=== PATIENT | male | born 1990 | race Caucasian/White ===

== ENCOUNTER 2020-06-02 06:35 | Outpatient (CLI) | payer OTHER, SELFPAY ==
--- NOTE | ~2020-06-02 | MR_ITS ---
EXAMINATION: MR knee RT wo con DATE: 06/02/2020 09:20 INDICATION: Internal derangement of the right knee presenting with right knee pain and giving out TECHNIQUE: Magnetic resonance imaging (MRI) of the right knee was performed without intravenous contr ast. Sequences included coronal PD-weighted FSE, coronal PD-weighted FS FSE, sagittal T2-weighted FS E, sagittal PD-weighted FS FSE and axial PD weighted fat saturated FSE. COMPARISON: None. FINDINGS: Evaluation mildly limited by small amount of motion artifact or blurring to some degree on all sequen tiffani. Medial compartment: Medial meniscus is normal. Articular cartilage is normal. Lateral compartment: Lateral meniscus is normal. Articular cartilage is normal. Patellofemoral compartment: Deep chondral fissuring without degenerative subchondral changes at the patellar apical ridge. Remain ing cartilage in the patellofemoral compartment is normal. Ligaments and tendons: Anterior and posterior cruciate ligaments are normal. The medial collateral ligament and fibular timo ateral ligament complex are normal. The extensor mechanism is normal. The visualized medial and later al hamstring tendons as well as the iliotibial band are normal. Fluid: Physiologic amount of fluid in the joint space. No loose osteochondral bodies identified. Osseous/other: Normal marrow signal. No fracture or abnormal marrow replacing process. Mild edema in the infrapatell ar fat pad along the inferolateral margin of the patella which is similar but significantly less matty re than at the contralateral right knee, also consistent with fat pad impingement syndrome. IMPRESSION: 1. 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 2. Mild focal edema in the infrapatellar fat pad along the inferolateral margin of the patella simila r but less severe than at the contralateral right knee and which could be seen with fat pad impingeme nt syndrome. Reviewed, dictated and finalized at location B. T FOLDING MACHINE OPERATOR IMPRESSION: 1. 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 2. Mild focal edema in the infrapatellar fat pad along the inferolateral margin of the patella similar but less severe than at the contralateral right knee an d which could be seen with fat pad impingement syndrome.
--- NOTE | ~2020-06-02 | MR_ITS ---
EXAMINATION: MR knee LT wo con DATE: 06/02/2020 09:20 INDICATION: Internal derangement of the left knee TECHNIQUE: Magnetic resonance imaging (MRI) of the left knee was performed without intravenous contra st. Sequences included coronal PD-weighted FSE, coronal PD-weighted FS FSE, sagittal T2-weighted FSE , sagittal PD-weighted FS FSE and axial PD weighted fat saturated FSE. COMPARISON: None. FINDINGS: Evaluation mildly limited by some degree of motion artifact on all of the sagittal and coronal sequen tiffani including a repeated sagittal sequence. Medial compartment: Medial meniscus is normal. Articular cartilage is normal. Lateral compartment: Lateral meniscus is normal. Articular cartilage is normal. Patellofemoral compartment: Partial-thickness chondral fissuring without degenerative subchondral changes at the medial patellar facet. Remaining cartilage in the patellofemoral compartment is normal. Ligaments and tendons: Anterior and posterior cruciate ligaments are normal. The medial collateral ligament and fibular timo ateral ligament complex are normal. The extensor mechanism is normal. The visualized medial and later al hamstring tendons as well as the iliotibial band are normal. Fluid: Physiologic amount of fluid in the joint space. No loose osteochondral bodies identified. Osseous/other: Normal marrow signal. No fracture or abnormal marrow replacing process. There is prominent edema in t he infrapatellar fat pad along the inferolateral margin of the patella which can be seen with fat pad impingement syndrome. IMPRESSION: 1. Small region of moderate grade chondromalacia at the medial patellar facet. 2. Prominent focal edema in the infrapatellar fat along the inferolateral margin of the patella which can be seen with fat pad impingement syndrome. Reviewed, dictated and finalized at location B. ING AGENT IMPRESSION: 1. Small region of moderate grade chondromalacia at the medial patellar facet. 2. Prominent focal edema in the infrapatellar fat along the inferolateral vitaly n of the patella which can be seen with fat pad impingement syndrome.
== END 2020-06-02 06:36 | disposition home or self-care (01) ==
PROVIDERS: Family Provider Internal Medicine; PCP Family Medicine; Visit Provider Anesthesiology
DX: M23.91 Unspecified internal derangement of right knee (principal); M23.92 Unspecified internal derangement of left knee; M22.40 Chondromalacia patellae, unspecified knee; R60.0 Localized edema
CPT/HCPCS: 73721

== ENCOUNTER 2020-06-02 06:56 | Outpatient (CLI) | payer OTHER, SELFPAY ==
--- NOTE | ~2020-06-02 | XR_ITS ---
EXAMINATION: XR thoracic spine 3V EXAM DATE: 06/02/2020 07:22 INDICATION: Thoracic back pain, left shoulder pain, states fall. TECHNIQUE: Frontal and lateral projections of the thoracic spine as well as lateral swimmers projecti on of the upper thoracic spine for interpretation. There is no prior study for comparison. FINDINGS: Mild mid and lower thoracic disc disease. No endplate erosive change. There are no acute fractures identified. The vertebral bodies are aligned in the AP dimension. Paraspinal soft tissue i s unremarkable. IMPRESSION: 1. 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 Reviewed, dictated and finalized at location A. NESS SYSTEMS CONSULTANT
--- NOTE | ~2020-06-02 | XR_ITS ---
EXAMINATION: XR shoulder LT min 2V DATE: 06/02/2020 07:22 INDICATION: Left shoulder pain. TECHNIQUE: 4 views of left shoulder were obtained. COMPARISON: None. FINDINGS: Bone alignment is normal. No fracture. Glenohumeral joint is normal. There is mild acromioc lavicular joint osteoarthritis. IMPRESSION: 1. Mild left acromioclavicular joint osteoarthritis. Reviewed, dictated and finalized at location A. PULLER
== END 2020-06-02 06:57 | disposition home or self-care (01) ==
PROVIDERS: Family Provider Internal Medicine; PCP Family Medicine; Visit Provider Family Medicine
DX: M51.34 Other intervertebral disc degeneration, thoracic region (principal); M19.012 Primary osteoarthritis, left shoulder
CPT/HCPCS: 72072; 73030

== ENCOUNTER 2024-11-06 11:21 | Outpatient (CLI) | payer OTHER, SELFPAY ==
--- OUTSIDE RECORDS SUMMARY | 2024-11-06 11:25 | XMS_ITS | Clinical Summary ---
Author Organization [facility] Katiana andrews [facility] Address [address] [facility] [place] [address] Care Team Providers Care Dividend Deposit Voucher Clerk Name Role Phone Unavailable Primary Care Provider Unavailabl e Allergies Active Allergy Reactions Criticality Noted Date Comments Propofol Shortness of Breath/Wheezing High 025 Affects asthma Medications albuterol sulfate HFA 90 mcg/actuation aerosol inhaler USE 2 INHALATIONS EVERY 4 TO 6 HOURS NEEDED FOR WHEEZING AND SHORTNESS OF BREATH Active amLODIPine (NORVASC) 10 mg tablet Take 10 mg by mouth daily. Active atorvastatin (LIPITOR) 40 mg tablet Take 40 mg by mouth daily. Active cholecalciferol 1,250 mcg (50,000 unit) Capsule TAKE 1 CAPSULE BY MOUTH ONE TIME PER WEEK FOR 90 DAYS Active Active Problems No known active problems Encounters Date Type Department Care Team Description 11/06/2024 10:30 AM CDT Office Visit [facility] Oncology and Hematology - [place] [address] [place] [address] Cleveland Reyes MD Polycythemia, secondary (Primary Dx) from Last 3 Months Family History Medical History Relation Name Comments Diabetes Father No Known Problems Mother No Known Problems Sister 1 No Known Problems Sister 2 Relation Name Status Comments Father Alive Mother Alive Sister 1 Alive Sister 2 Alive Social History Tobacco Use Types Packs/Day Years Used Date Smoking Tobacco: Never Smokeless Tobacco: Never Alcohol Use Standard Drinks/Week Comments Yes 0 (1 standard drink = 0.6 oz pur e alcohol) occasional Sex and Gender Information Value Date Recorded Sex Assigned at Not on file 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 Gender Identity Not on file Sexual Orientation Not on file Last Filed Vital Signs Vital Sign Reading Time Taken Comments Blood Pressure 134/83 11/06/2024 10:29 AM CDT Pulse 95 11/06/2024 10:29 AM CDT Temperature 36.9 C (98.4 F) 11/06/2024 10:29 AM CDT Respiratory Rate 16 11/06/2024 10:2 9 AM CDT Oxygen Saturation 95% 11/06/2024 10: 29 AM CDT Inhaled Oxygen Concentration - - Weight 84.7 kg (186 lb 12.8 oz) 025 10:29 AM CDT Height 177.8 cm (5' 10) 11/06/2024 10: 29 AM CDT Body Mass Index 26.8 11/06/2024 10:29 AM CDT Plan of Treatment Upcoming Encounters Date Type Department Care Team (Late st Contact Info) Description 11/20/2024 4:30 PM CDT Telephone Check Up [facility] - [place] [address] [facility] [address] [place] [id number] Cleveland Reyes MD [address] [facility] [address] [place] [address] Health Maintenance Due Date Last Done Comments Pre-Diabetes and Diabetes Screening 1988 HEPATITIS B VACCINES (1 of 3 - 19+ 3-dose series) 01/30/2007 Preventative Visit- Commercial 05/07/2024 09/06/2022 INFLUENZA VACCINE (#1) 2024 DTAP/TDAP/TD VACCINES (2 - T d or Tdap) 12/02/2031 12/01/2021 HPV VACCINES Aged Out No longer eligi ble based on patient's age to complete this topic Insurance [facility] [id number] Member Subscriber Plan / Payer (Ef fective 2024-Present) Name:Alli Benoit Relation to Subscriber:Self Name:Alli Benoit Payer ID:[id number] (NAIC) Type:[facility] Address: [facility] [id number] [place] [id number]
--- OUTSIDE RECORDS SUMMARY | 2024-11-06 11:25 | XMS_ITS | Encounter Summary ---
Author Organization [facility] [employer] [facility] Address [address] [place] [address] Care Team Providers Care Ditcher Operator Name Role Phone Unavailable Primary Care Provider Unavailabl e Reason for Referral * Laboratory Services (Routine) - Open Specialty Diagnoses / Procedures Referred By Harleen t Referred To Contact Diagnoses Polycythemia, secondary Procedures JAK2 MUTATION Cleveland Reyes MD [address] [facility] [employer] [address] [address] Phone: tel: fax: Referral ID Status Reason Start Date Expiration Date Visits Re quested Visits Authorized [id number] Open 11/06/2024 12/07/2025 1 1 Encounter Details Date Type Department Care Team (Late st Contact Info) Description 11/06/2024 10:30 AM CDT Office Visit [facility] Oncology and Hematology - [place] [address] [place] [address] [facility] [address] [place] [address] Cleveland Reyes MD [address] [place], [place] [address] [address] [place] [phone] Polycythemia, secondary (Primary Dx) Social History Tobacco Use Types Packs/Day Years Used Date Smoking Tobacco: Never Smokeless Tobacco: Never Alcohol Use Standard Drinks/Week Comments Yes 0 (1 standard drink = 0.6 oz pur e alcohol) occasional Sex and Gender Information Value Date Recorded Sex Assigned at Not on file 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 Gender Identity Not on file Sexual Orientation Not on file documented as of this encounter Last Filed Vital Signs Vital Sign Reading [...] Mass Index 26.8 11/06/2024 10:29 AM CDT documented in this encounter Plan of Treatment Upcoming Encounters Date Type Department Care Team (Late st Contact Info) Description 11/20/2024 4:30 PM CDT Telephone Check Up [facility] Oncology and Hematology [facility] [address] [facility] [address] [place] [address] Cleveland Reyes MD [address] [facility] [address] [place] [address] Scheduled Orders Name Type Priority Associated Diagnoses Orde r Schedule CBC WITH DIFFERENTIAL Lab Stat Polycythemia, secondary Expected: 11/06/2024, Expires: 11/06/2025 ERYTHROPOIETIN LEVEL Lab Routine Polycythemia, secondary Expected: 11/06/2024, Expires: 11/06/2025 JAK2 MUTATION Lab Routine Polycythemia, secondary Expected: 11/06/2024, Expires: 11/06/2025 COMPREHENSIVE METABOLIC PANEL Lab Stat Polycythemia, secondary Expected: 11/06/2024, Expires: 11/06/2025 documented as of this encounter Visit Diagnoses Diagnosis Polycythemia, secondary- Primary documented in this encounter
--- OUTSIDE RECORDS SUMMARY | 2024-11-06 11:25 | XMS_ITS | Clinical Summary ---
Author Organization [facility] Address [address] [place] [address] Care Team Providers Care Rod Buster Helper Name Role Phone Unavailable Primary Care Provider Unavailabl e Social History Tobacco Use Types Packs/Day Years Used Date Smoking Tobacco: Never Assessed Sex and Gender Information Value Date Recorded Sex Assigned at Not on file Legal Sex Male 7:49 PM CDT Gender Identity Not on file Sexual Orientation Not on file Plan of Treatment Health Maintenance Due Date Last Done Comments Annual Physical 01/30/1991 Hepatitis C 01/30/2006 DTaP, Tdap and Td Vaccines ( 1 - Tdap) 01/30/2007 Hepatitis B Vaccines (1 of 3 - 19+ 3-dose series) 01/30/2007 COVID-19 Vaccine (2023-2 5 season) 2024 HPV Vaccines Aged Out No longer eligi ble based on patient's age to complete this topic Meningococcal B Vaccine Aged Out No l onger eligible based on patient's age to complete this topic Meningococcal Vaccine Aged Out No miguel clifford eligible based on patient's age to complete this topic Pneumococcal Vaccine: Pediat rics (0 to 5 Years) and At-Risk Patients (6 to 49 Years) Aged Out No longer eligible b ased on patient's age to complete this topic RSV Immunizations Under 20 Months Aged Out No longer eligible based on patient's age to complete this topic
--- OUTSIDE RECORDS SUMMARY | 2024-11-06 11:25 | XMS_ITS ---
Author Organization [facility] Address [address] [place] [address] GUERO Beasley [address] Care Team Providers Care Gas Pumping Station Supervisor Name Role Phone MD VINCE, GUMARO Primary Care Provider U Rigoberto Samuels Unavailable [phone] SABINA CAM CHARLES Unavailable Unavailable REASON FOR VISIT Left > Right Low Back Pain MEDICATIONS Medication SIG (Take, Route, Frequency, Duration) Notes Start Date End Date Status amLODIPine Besylate 10 MG 1 tablet Orall y Once a day Active Doxycycline Hyclate 100 MG 1 tablet Oral ly twice a day for 5 days Active [facility] Senna 8.6 MG 2 tablets at bedtime as needed Oral Once a day Active Docusate Sodium 100 MG 1 capsule as need ed Oral Once a day Active DULoxetine HCl 60 MG TAKE 1 CAPSULE BY MOUTH EVERY DAY Oral for 30 Active Albuterol Sulfate HFA 108 (9 0 Base) MCG/ACT 1 puff as needed Inhalation every 4 hrs Active Albuterol 2 MG 1 tablet Orally Thre e times a day for 30 day(s) Active Ventolin HFA 108 (90 Base) MCG/ACT (Prior Auth: Rx Ref#:[id number]) Inhalation for 17 Active methylPREDNISolone 4 MG as directed Orally 024 Active VITAL SIGNS Blood pressure systolic 133 mm Hg 10/04/19 25 Blood pressure diastolic 94 mm Hg 025 Heart Rate 81 /min 10/03/2024 Respiratory Rate 16 /min 10/03/2024 Height 5 ft 10 in in 10/03/2024 Weight 194 lbs 10/03/2024 BMI 27.83 kg/m2 10/03/2024 Post procedure VS= BP 134/90 , P 64, R 16Discharged home per ambulatory, in no acute distress. Encounters Encounter Location Date Provider Diagnosis [facility] [address] [facility] [place] [address] 10/03/2024 Rigoberto Ramsay Mononeuropathy, unspecified G58.9 ASSESSMENTS Encounter Date Diagnosis Assessment Notes Treatment Notes Treatment Clinical Notes Section Notes 10/03/2024 Mononeuropathy, unspecified (ICD-10 - G58.9) PLAN OF TREATMENT Next Appt Details Follow Up: HAS 10/17/24 F/U S CHEDULED, Reason: Procedure Notes * Category Sub-Category Detail Notes Peripheral Nerve Block Procedure: Bilateral Superior Cluneal Nerve Block with Ultrasound + X-ray Guidance Operative Technique: After the risks, be nefits, alternative treatments and potential complications related to the procedure were discussed and written and informed consent was obtained, the patient was positioned. Standard ASA monitors were applied. The iliac crests were prepped and draped in the usual sterile fashion with chlorohexidine 2%/IPA 70%. Each location was imaged with ultrasound and entered under live U/S guidance with a 23-gauge 3.5-inch needle. 2 mL of 1% PF lidocaine was injected during needle placement. A solution of 10 mg of Preservative-Free Dexamethasone (10 mg/mL), plus 9 mL of 0.25% preservative-free plain bupivacaine was mixed. After negative aspiration 5 mL of the above solution was slowly injected at posterior superior aspect of the iliac crests bilaterally. There was good spread of injectate along the nerve sheath seen on live U/S. X-ray was used to help ensure correct needle placement. There was no loculation or vascular uptake on U/S. The needles were removed, the skin was cleaned and a band-aid was placed over the puncture site. The patient tolerated the procedure well, was able to ambulate without difficulty and was monitored for 20 minutes. Patient reports a 90% reduction in typical pain immediately postprocedure. The patient remained hemodynamically and neurologically stable. No apparent complications were observed. Postoperative instructions were reviewed with the patient. The patient was then discharged home in good condition with a pick up driver. X-ray time 6 seconds Progress Notes * Examination Category Sub-Category Detail Notes Category Not es Examination/ Pre-Anesthesia Assessment General: The patient is alert and ruth ented X 3 in moderate distress secondary to pain. The patient continually moves around in his chair and restlessly moves his lower extremities UDS 01/02/24 -positive for hydrocodone. Patient was also positive for fentanyl, which is not prescribed by this office, but given during a recent spinal cord stimulator placement surgery HEENT: Normocephalic, atrau matic. PERRL. The oropharynx is clear Neck: There is full range of motion of the cervical spine Heart: Regular rate and rhy thm Chest: Clear to auscultatio n bilaterally Abdomen: Soft and benign Musculoskeletal and Extremities: There i s tenderness to palpation over the bilateral L4-5 and L5-S1 facet joints. Extension and lateral rotation of the lumbar spine reproduces the patient's typical axial low back pain. There are palpable myofascial trigger points bilaterally in the erector spinae and quadratus lumborum muscle groups. Armand's and Gaenslen's are positive bilaterally. There is exquisite tenderness palpation over the left greater than right sacroiliac joints. There is weakness and atrophy of the bilateral lumbar paraspinal muscles. There is a generalized TTP over knees bilaterally. Generalized knee laxity is noted bilaterally Neurological: There is positive st raight leg raising bilaterally for reproduction of pain down the L5 and S1 dermatomes at 45 degrees. There is 4 out of 5 strength at the bilateral EHL and plantar flexors. Otherwise there are no focal deficits in the remainder of the bilateral lower extremities Skin: Clean, dry, intact. The patient's midline incision and incision over the right buttock are well-healed Psychiatric: Mood is anxious and affect demonstrates pressured speech History and Physical Notes * HPI (History of Present Illness) Category Sub-Category Detail Notes Category Not es Pain Management Radiographic Imaging Radiographic Imaging Lumbar spine MRI with and without contrast. 07/24/21: L5-S1 posterior fusion. L1-2: Normal. L2-3: Normal. L3-4: Normal. L4-5: Annular disc bulge with shallow disc protrusion. Bilateral facet arthropathy. Mild spinal canal stenosis. Bilateral neuroforaminal stenosis. L5-S1: Fused. MRI thoracic spine performed in 02/27/24. No evidence of acute fracture, vertebral body heights are unchanged. Spondylosis. Marrow signal within normal limits. Spinal canal stimulator leads terminating at the level of T7-8 multilevel vertebral intervertebral disc desiccation, loss of intervertebral disc height. T7-8 shallow right paracentral central right subarticular disc protrusion, slightly indenting the right central ventral thecal sac. Bilateral facet arthropathy. No spinal canal stenosis. No foraminal stenosis. MRI lumbar spine without contrast performed 05/20/24. L1-2. No diffuse or focal herniation. Bilateral facet arthropathy. No spinal canal stenosis. No neural foraminal stenosis. L2-3. No diffuse disc bulge or focal herniation demonstrated on current imaging. Bilateral facet arthropathy. No spinal canal stenosis. No neural foraminal stenosis demonstrated on current imaging. L3-4 minimal annular disc bulge. Bilateral hypertrophic facet arthropathy. No spinal canal stenosis. Slight bilateral inferior neural foraminal stenosis. Slight disc contact with exiting bilateral L3 nerve root. L4-5, mild annular disc bulge with central disc protrusion with annular fissure. Bilateral hypertrophic facet arthropathy. No spinal canal stenosis. Mild bilateral neural foraminal stenosis. Posterior cortical margin/disc contact with exiting bilateral L4 nerve roots. L5-S1 fused at this level. Bilateral hypertrophic facet arthropathy. No spinal canal stenosis, status post decompression. , Radiographic Imaging Lumbar spine MRI with and without contrast. 07/24/21: L5-S1 posterior fusion. L1-2: Normal. L2-3: Normal. L3-4: Normal. L4-5: Annular disc bulge with shallow disc protrusion. Bilateral facet arthropathy. Mild spinal canal stenosis. Bilateral neuroforaminal stenosis. L5-S1: Fused. MRI thoracic spine performed in 02/27/24. No evidence of acute fracture, vertebral body heights are unchanged. Spondylosis. Marrow signal within normal limits. Spinal canal stimulator leads terminating at the level of T7-8 multilevel vertebral intervertebral disc desiccation, loss of intervertebral disc height. T7-8 shallow right paracentral central right subarticular disc protrusion, slightly indenting the right central ventral thecal sac. Bilateral facet arthropathy. No spinal canal stenosis. No foraminal stenosis. MRI lumbar spine without contrast performed 05/20/24. L1-2. No diffuse or focal herniation. Bilateral facet arthropathy. No spinal canal stenosis. No neural foraminal stenosis. L2-3. No diffuse disc bulge or focal herniation demonstrated on current imaging. Bilateral facet arthropathy. No spinal canal stenosis. No neural foraminal stenosis demonstrated on current imaging. L3-4 minimal annular disc bulge. Bilateral hypertrophic facet arthropathy. No spinal canal stenosis. Slight bilateral inferior neural foraminal stenosis. Slight disc contact with exiting bilateral L3 nerve root. L4-5, mild annular disc bulge with central disc protrusion with annular fissure. Bilateral hypertrophic facet arthropathy. No spinal canal stenosis. Mild bilateral neural foraminal stenosis. Posterior cortical margin/disc contact with exiting bilateral L4 nerve roots. L5-S1 fused at this level. Bilateral hypertrophic facet arthropathy. No spinal canal stenosis, status post decompression. Assessment and Follow-up: Follow-up Plan documen isabel:: Yes [facility] Quality 2020: [facility] Documented:: Compliant
--- OUTSIDE RECORDS SUMMARY | 2024-11-06 11:25 | XMS_ITS | Clinical Summary ---
Author Organization [facility] Address [address] [place] [address] Phone Care Team Providers Care First Aid Instructor Name Role Phone Unavailable Primary Care Provider Unavailabl e Social History Tobacco Use Types Packs/Day Years Used Date Smoking Tobacco: Never Assessed Sex and Gender Information Value Date Recorded Sex Assigned at Not on file Legal Sex Male 9:38 AM CDT Gender Identity Not on file Sexual Orientation Not on file Plan of Treatment Health Maintenance Due Date Last Done Comments Hepatitis C Virus (HCV) Screening 1988 TdaP Immunization 1988 Hepatitis B Immunization (1 of 3 - 19+ 3-dose series) 01/30/2007 Influenza Immunization (#1) 2024 SARS-COV-2 Immunization ( - 2023- season) 2024 Respiratory Syncytial Virus (RSV) Immunization (Adult) (1 - 1-dose 75+ series) 01/30/2063 Pneumococcal Immunization Combined Aged Out 2013 No longer eligible based on patient's age to complete this topic Meningococcal Immunization (ACWY) Aged Out No longer eligible based on patient's age to complete this topic Rotavirus Immunization Aged Out No lo nger eligible based on patient's age to complete this topic
--- OUTSIDE RECORDS SUMMARY | 2024-11-06 11:26 | XMS_ITS ---
Author Organization [facility] Address [address] [place] [address] GUERO Beasley [address] Care Team Providers Care Frame Maker Name Role Phone MD VINCE, GUMARO Primary Care Provider U Rigoberto Samuels Unavailable [phone] SABINA CAM CHARLES Unavailable Unavailable ALLERGIES No Known Allergies REASON FOR VISIT Follow Up, Left > Right Low Back Pain, Left = Right Lower Extremity Pain MEDICATIONS Medication SIG (Take, Route, Frequency, Duration) Notes Start Date End Date Status [facility] Senna 8.6 MG 2 tablets at bedtime as needed Oral Once a day Active Docusate Sodium 100 MG 1 capsule as need ed Oral Once a day Active Vitamin D 50 MCG (1999 UT) 1 tablet Oral ly Once a day for 30 day(s) 10/17/2024 Active Doxycycline Hyclate 100 MG 1 tablet Oral ly twice a day for 5 days Active DULoxetine HCl 60 MG TAKE 1 CAPSULE BY MOUTH EVERY DAY Oral for 30 Active methylPREDNISolone 4 MG as directed Orally 024 Active Albuterol Sulfate HFA 108 (9 0 Base) MCG/ACT 1 puff as needed Inhalation every 4 hrs Active Albuterol 2 MG 1 tablet Orally Thre e times a day for 30 day(s) Active Ventolin HFA 108 (90 Base) MCG/ACT (Prior Auth: Rx Ref#:[id number]) Inhalation for 17 Active amLODIPine Besylate 10 MG 1 tablet Orall y Once a day Active SOCIAL HISTORY Tobacco Use: Social History Observation Description Date Details (start date - stop date) Never Smoker NA - NA Sex Assigned At : Social History Observation Description Sex Assigned At Unknown Tobacco Use/Smoking Question Answer Notes Are you a nonsmoker Section Notes: The patient is employed time recorder as a learning facilitator. 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 He denies tobacco and drug use. He does admit to drinking alcohol occasionally. VITAL SIGNS Blood pressure systolic 132 mm Hg 10/18/19 Blood pressure diastolic 92 mm Hg 025 Heart Rate 89 /min 10/17/2024 Respiratory Rate 18 /min 10/17/2024 Height 5 ft 10 in in 10/17/2024 Weight 195 lbs 10/17/2024 BMI 27.98 kg/m2 10/17/2024 Encounters Encounter Location Date Provider Diagnosis [facility] [address] [place] [address] [place] [address] 10/17/2024 Rigoberto Ramsay Mononeuropathy, unspecified G58.9 ; Radiculopathy, lumbosacral region M54.17 ; Sacroiliitis, not elsewhere classified M46.1 ; Spondylosis without myelopathy or radiculopathy, lumbar region M47.816 ; Spondylosis without myelopathy or radiculopathy, lumbosacral region M47.817 ; Postlaminectomy syndrome, not elsewhere classified M96.1 and Radiculopathy, lumbar region M54.16 ASSESSMENTS Encounter Date Diagnosis Assessment Notes Treatment Notes Treatment Clinical Notes Section Notes 10/17/2024 Mononeuropathy, unspecified (ICD-10 - G58.9) The patient recently underwent bilateral cluneal nerve block done on 10/03/24 and reports a 90% reduction of his low back and buttock pain since this procedure. He currently denies a need for any injections or interventions at this time. He states he plans to follow-up with his neurosurgeon to discuss options moving forward. He would like to return to the office in 1 month for follow-up and reevaluation of his pain at that time. 10/17/2024 Radiculopathy, lumbosacral region (ICD-10 - M54.17) 10/17/2024 Sacroiliitis, not elsewhere classified (ICD-10 - M46.1) 10/17/2024 Spondylosis without myelopathy or radiculopathy, lumbar region (ICD-10 - M47.816) 10/17/2024 Spondylosis without myelopathy or radiculopathy, lumbosacral region (ICD-10 - M47.817) 10/17/2024 Postlaminectomy syndrome, not elsewhere classified (ICD-10 - M96.1) 10/17/2024 Radiculopathy, lumbar region (ICD-10 - M54.16) 10/17/2024 Other The above-named patient was evaluated in conjunction with Dr. Ramsay. I have discussed and reviewed all of the pertinent history, physical examination findings and diagnostic imaging results with him. As a result of our discussion, Dr. Ramsay has determined the above assessment and directed the treatment plan. This note was dictated using voice recognition software and therefore inadvertent errors may have occurred. This note was dictated by YOSHI Black. Total Time Spent with Patient and Medical Decision Makin minutes PLAN OF TREATMENT Treatment Notes Assessment Notes Mononeuropathy, unspecified The patient recently underwent bilateral cluneal nerve block done on 10/03/24 and reports a 90% reduction of his low back and buttock pain since this procedure. He currently denies a need for any injections or interventions at this time. He states he plans to follow-up with his neurosurgeon to discuss options moving forward. He would like to return to the office in 1 month for follow-up and reevaluation of his pain at that time. Other The above-named patient was evaluated in conjunction with Dr. Ramsay. I have discussed and reviewed all of the pertinent history, physical examination findings and diagnostic imaging results with him. As a result of our discussion, Dr. Ramsay has determined the above assessment and directed the treatment plan. This note was dictated using voice recognition software and therefore inadvertent errors may have occurred. This note was dictated by OYSHI Black. Total Time Spent with Patient and Medical Decision Makin minutes Next Appt Details Follow Up: 4 Weeks [facility], and follow-up with neurosurgeon Dr Clinton, Reason: Progress Notes * Examination Category Sub-Category Detail Notes Category Not es Examination/ Pre-Anesthesia Assessment General: The patient is alert and oriented X 3 in moderate distress secondary to pain. The patient continually moves around in his chair and restlessly moves his lower extremities HEENT: Normocephalic, atrau matic. PERRL. The oropharynx [...] post decompression. Assessment and Follow-up: Follow-up Plan stephen hall:: Yes
--- OUTSIDE RECORDS SUMMARY | 2024-11-06 11:26 | XMS_ITS ---
Author Organization [facility] Address [address] [place] [address] [facility] [place] [address] Care Team Providers Care Service Officer Name Role Phone MD VINCE, GUMARO Primary Care Provider U Rigoberto Samuels Unavailable [phone] SABINA CAM CHARLES Unavailable Unavailable REASON FOR VISIT BILAT CLUENAL NB (PERIPHERAL NB) MEDICATIONS Medication SIG (Take, Route, Frequency, Duration) Notes Start Date End Date Status DULoxetine HCl 60 MG TAKE 1 CAPSULE BY MOUTH EVERY DAY Oral for 30 Active amLODIPine Besylate 10 MG 1 tablet Orall y Once a day Active [facility] Sen[facility] 8.6 MG 2 tablets at bedtime as needed Oral Once a day Active Docusate Sodium 100 MG 1 capsule as need ed Oral Once a day Active Doxycycline Hyclate 100 MG 1 tablet Oral ly twice a day for 5 days Active Ventolin HFA 108 (90 Base) MCG/ACT (Prior Auth: Rx Ref#:[id number]) Inhalation for 17 Active Albuterol Sulfate HFA 108 (9 0 Base) MCG/ACT 1 puff as needed Inhalation every 4 hrs Active Albuterol 2 MG 1 tablet Orally Thre e times a day for 30 day(s) Active methylPREDNISolone 4 MG as directed Orally 024 Active Encounters Encounter Location Date Provider Diagnosis [facility] [address] [facility] [place] [address] 09/19/2024 Rigoberto Ramsay PLAN OF TREATMENT No Information Procedure Notes * Category Sub-Category Detail Notes Peripheral Nerve Block Procedure: Bilateral Cluneal Nerve Block with Ultrasound Guidance Operative Technique: After the risks, be nefits, alternative treatments and potential complications related to the procedure were discussed and written and informed consent was obtained, the patient was positioned. Standard ASA monitors were applied. The locations indicated above were prepped and draped in the usual sterile fashion with chlorohexidine 2%/IPA 70%. Each location was imaged with ultrasound and entered under live U/S guidance with a 25-gauge 1.5-inch needle. 1-3mL of 1% PF lidocaine was injected during needle placement. A solution of 10 mg of Preservative-Free Dexamethasone (10 mg/mL), plus mL of 0.25% preservative-free plain bupivacaine was mixed. After negative aspiration mL of the above solution was slowly injected at each site indicated above. There was good spread of injectate along the nerve sheath seen on live U/S. There was no loculation or vascular uptake. The needle was removed, the skin was cleaned and a band-aid was placed over the puncture site. The patient tolerated the procedure well, was able to ambulate without difficulty and was monitored for 20 minutes. The patient remained hemodynamically and neurologically stable. No apparent complications were observed. Postoperative instructions were reviewed with the patient. 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
--- OUTSIDE RECORDS SUMMARY | 2024-11-06 11:26 | XMS_ITS | Data Portability ---
Author Organization [place] [facility], Main Office Address [address] [place] [address] Care Team Providers Care Account Resolution Specialist Name Role Phone JESSICA, LANGBECKER Stem Cutter JESSICA, LANGBECKER Stem Cutter JESSICA, LANGBECKER Stem Cutter Assessment Encounter Date Assessment Date Assessment LastModified by Organization Details LastModified Time 02/25/2024 02/25/2024 60 minutes spent with the patient and his Grand mother, reviewed his old chart, updated his chart, provided the referrals [email or web address] Not available 02/25/2024 17:05:33 06/12/2024 06/12/2024 Time spent with patient included: preparing to see patient by reviewing tests, obtaining and reviewing history, medical examination and evaluation, counseling and educating the patient, ordering medications and tests, documenting clinical information in EHR, independently interpreting results and communicating results to the patient for a total of 43 minutes. Not available 06/12/2024 10:48:59 07/28/2024 07/28/2024 05/31/2024: H/H 17.3/52.3 Chol 254, TG 181, LDL 180 A1C 5.4 VIT D 7.2 Not available 07/28/2024 10:37:45 10/22/2024 10/22/2024 05/31/2024: H/H 17.3/52.3 Chol 254, TG 181, LDL 180 A1C 5.4 VIT D 7.2 Not available 10/22/2024 10:00:05 Plan of Treatment Reminders Order Date Submit Date Provider Last Modified By Organization Details Last Modified Time Details Appointments Any 15 2024 09:00A Noemy romo MD Not available Not available Not available Lab vitamin D, 25-hydr oxy, total, serum [address] (Lab), [address] [place], [address], 10/22/2024 11:01:58 CMP, serum or plasma [address] (Lab), [address] [place], [address], 10/22/2024 11:01:57 lipid panel, serum [address] (Lab), [address] [place], [address], 10/22/2024 11:01:58 CBC w/ auto diff [address] (Lab), [address] [place], [address], 10/22/2024 11:01:58 TSH, serum or plasma [address] (Lab), [address] [place], [address], 10/22/2024 11:01:58 vitamin D, 25-hydr oxy, total, serum [address] (Lab), [address] [place], [address], 08/06/2024 17:53:44 CMP, serum or plasma [address] (Lab), [address] [place], [address], 08/06/2024 17:52:57 lipid panel, serum [address] (Lab), [address] [place], [address], 08/06/2024 17:53:07 CBC w/ auto diff [address] (Lab), [address] [place], [address], 08/06/2024 17:53:16 TSH, serum or plasma [address] (Lab), [address] [place], [address], 08/06/2024 17:53:26 ige, total, serum 2024 025 [email or web address] 2 Not available 07/30/2024 09:46:26 igg subclas ses 1+2+3+4 , serum 2024 025 [email or web address] 2 Not available 07/30/2024 09:46:37 respira tory allerge n panel, [facility] A, serum 2024 025 [email or web address] 2 Not available 07/30/2024 09:46:51 respira tory allerge n panel - [facility] b 2024 025 [email or web address] 2 Not available 07/30/2024 09:47:03 eosinop hils, quant, blood 2024 025 [email or web address] 2 [facility] (Lab), [address] [place], [address], 07/30/2024 09:47:15 vitamin D, 25-hydr oxy, total, serum [address] (Lab), [address] [place], [address], 06/02/2024 16:00:02 glycohe moglobi n, total, blood [address] (Lab), [address] [place], [address], 06/02/2024 16:00:01 microal bumin, urine [address] (Lab), [address] [place], [address], 06/02/2024 16:00:02 CMP, serum or plasma [address] (Lab), [address] [place], [address], 06/02/2024 16:00:00 lipid panel, serum [address] (Lab), [address] [place], [address], 06/02/2024 16:00:01 CBC w/ auto diff [address] (Lab), [address] [place], [address], 06/02/2024 16:00:01 TSH, serum or plasma [address] (Lab), [address] [place], [address], 06/02/2024 16:00:01 Referral pulmono logist referra l - Please call patient to pat e an appoint ment. Thank you. 2024 025 [email or web address] Nohemi Hammer RN TRANSFER-C, [address] [facility], [address], [place], [address], 10/31/2024 14:55:25 hematol ogist referra l - Please call patient to pat e an appoint ment. Thank you. 2024 025 FRANK Reyes MD, [address], [place], [address], 10/29/2024 09:29:20 pain managem ent referra l - Please call patient to schedrosmery e an appoint ment. Thank you. 2024 025 [facility], [address], [address], [place], [address], 07/30/2024 13:08:18 hematol ogist referra l - Please call patient to schedul e an appoint ment. Thank you. 2024 025 leander Reyes MD, [address], [place], [address], 10/27/2024 09:56:05 pain managem ent referra l - Please call patient to schedul e. 2023 024 [facility], [address], [address], [place], [address], 03/06/2024 11:18:17 Procedures None recorde d. Surgeries None recorde d. Imaging None recorde d. Medication Orders atorvas tatin 40 mg tablet 2024 025 [id number] [address] , [place], [address], 07/28/2024 10:23:05 albuter ol sulfate HFA 90 mcg/act uation aerosol inhaler [address] [facility]armacy #[id number], [address], [place], [address], 07/28/2024 10:23:05 choleca lcifero l (vitami n D3) 1,250 mcg (50,000 unit) capsule [address] [facility]/Pharmacy #[id number], [address], [place], [address], 07/28/2024 10:23:06 amlodip ine 10 mg tablet 2023 024 [id number], [address], [place], [address], 02/25/2024 17:02:38 duloxet ine 60 mg capsule ,delaye d release 2023 024 [id number], [address], [place], [address], 02/25/2024 17:02:37 Patient TargetsNo targets recorded. Patient Instructions Encounter Date Encounter Id Patient Instructions Last Modified By Organization Details Last Modified Time 06/12/2024 [id number] Learning About Inhalers Not available 06/12/2024 10:29:10 complete PFT w/ post bronchodilator spirometry* Not available 07/16/2024 15:54:28 asthma: your action plan Not available 06/12/2024 10:29:11 Reason for Referral Pain Management Referral for Chronic pain Please call patient to schedule. Referring Physician: Yany Michaud Internal Medicine, Encounter Date: 02/25/2024 Pain Management Referral for Chronic pain Please call patient to schedule an appointment. Thank you. Referring Physician: Yany Michaud [facility], Encounter Date: 07/28/2024 Please call patient to sched ule an appointment. Thank you. Referring Physician: Yany Michaud Internal Medicine, Encounter Date: 07/28/2024 Please call patient to sched ule an appointment. Thank you. 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 Thank you. Referring Physician: Pat Brower Medicine, Encounter Date: 10/22/2024 Results Created Date Observation Date Name Description Value Unit Range Abnormal Flag Note LastModifiedBy Organization Detail LastModifiedTime 02/27/20 24 02/27/2024 MRI, thora cic spine , w/ contr ast No observ ation record ed. [email or web address] [id number] [address] , [place], [address], 03/03/2024 08:30:59 Result Notes None recorded. 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 87440957 Active 2016 Not Available [facility] 3 19:54:00 Perineal pain 782189415 Active Not Available [facility] 3 19:54:00 Calculus of kidney and ureter 522517102 Active Not Available [facility] 3 19:54:00 Migraine 91538358 Active Not Available [facility] 3 19:54:00 Hypertensive disorder 52632718 Active 2016 Not Available [facility] 3 19:54:00 Chronic sinusitis 29518289 Active Not Available [facility] 3 19:54:00 Anxiety 55120412 Active 2016 Not Available [facility] 3 19:54:00 Lower abdominal pain 29007542 Active Not Available [facility] 3 19:54:00 Kidney disease 61329409 Active Not Available [facility] 3 19:54:00 Kidney stone 42784371 Active Not Available [facility] 3 19:54:00 Acute asthma 105715982 Active 2022 Not Available [facility] 3 19:54:00 Unintentional weight loss 418872027 Active 2022 Not Available [facility] 3 19:54:00 Hyperlipidemi a 87419943 Active 2022 Not Available [facility] 3 19:54:00 Degeneration of lumbar intervertebra l disc 36419466 Active 2022 Not Available [facility] 3 19:54:00 Mixed anxiety and depressive disorder 193973218 Active 2022 Not Available [facility] 3 19:54:00 Prediabetes 078822615 Active 2022 Not Available [facility] 3 19:54:00 Essential hypertension 77123512 Active 2022 Not Available [facility] 3 19:54:00 Urgent desire to urinate 54626537 Active 2022 Not Available [facility] 3 19:54:00 Nasal congestion 45925498 Active 2022 Not Available [facility] 3 19:54:00 Laryngitis 64569693 Active 2022 Slime Mares MD [address], [address], [place], [address] , [employer] [facility] [employer] [facility] 3 11:17:07 Constipation 18037000 Active 2023 Slime Mares MD [address], [address], [place], [address] , [employer] [facility] 4 10:54:50 MRI scan abnormal 390243023 Active 2023 Slime Mares MD [address], [address], [place], [address] , [employer] [facility] [employer] [facility] 4 11:01:41 Chronic pain 99309977 Active 2023 Yany gore MD [address], [address], [place], [address] , [employer] [facility] [employer] [facility] 4 13:03:14 Vitamin D deficiency 32359536 Active 2023 Yany gore MD [address], [address], [place], [address] , [employer] [facility] [employer] [facility] 4 11:06:24 Cough 40211468 Active 2024 SHERLY Damon, [facility] 5 10:17:56 Asthma without status asthmaticus 46781630 Active 2024 [facility] 5 09:59:44 Erythrocytosi s 308594794 Active 2024 Yany gore MD [address] [place] [address] [address], [place], [address] , [facility] 5 10:22:23 Problem Notes None recorded. Procedures Surgical History Date Name Laterality Status Provider Name and Address Organization Details Recorded Time Back Surgeries completed Lexie Herrera Linda [facility] 02/25/2024 10:02:41 [place] Teeth completed GERSON Moe [facility] 02/25/2024 10:03:27 Tonsillectomy completed GERSON Moe [facility] 02/25/2024 10:03:38 ureterorenoscopy with fragmentation and removal of calculus of kidney completed Leeanne Garcia MA [facility] 06/12/2024 10:07:01 Imaging Results None recorded. Procedure Notes None recorded. Medical Equipment None Reported. Allergies No known drug allergies Medications Name Sig Start Date Stop Date Status Note LastModified by Organization Details LastModified Time cyclobenzap rine 10 mg tablet 1 TABLET NEEDED 3 TIMES A DAY FOR MUSCLE SPASM ORAL 30 DAYS 02/24 completed Not Available Not Available Not Available amoxicillin 500 mg capsule Take 1 capsule 3 times a day by oral route for 6 days. active Not Available Not Available No t Available atorvastati n 40 mg tablet TAKE 1 TABLET BY MOUTH EVERY DAY active Not Available Not Available No t Available butalbital- acetaminoph en-caffeine 50 mg-325 mg-40 mg capsule TK 1 C PO TID 11/22 completed Not Available Not Available Not Available venlafaxine ER 37.5 mg capsule,ext ended release 24 hr active Not Available Not Available Not Available prednisone 10 mg tablet 4 tabs x 4 d, 3 tabs x 3 d, 2 tabsx 2 d, 1 tab x 1 d 09/10 completed Not Available Not Available Not Available venlafaxine ER 75 mg capsule,ext ended release 24 hr active Not Available Not Available Not Available gabapentin 600 mg tablet TAKE 1 TABLET BY MOUTH EVERY 8 HOURS 06/14 completed Not Available Not Available Not Available doxycycline hyclate 100 mg capsule TK 1 C PO BID active Not Available Not Available No t Available ipratropium 0.5 mg-albutero l 3 mg (2.5 mg base)/3 mL nebulizatio n soln INHALE 3 ML BY NEBULIZAT ION 4 TIMES A DAY NEEDED active Not Available Not Available No t Available mirtazapine 30 mg disintegrat ing tablet PLACE ONE TABLET ON THE TONGUE AND LET DISSOLVE QHS 02/07 completed Not Available Not Available Not Available triamcinolo ne acetonide 0.5 % topical cream APPLY A THIN LAYER TO THE AFFECTED AREA(S) BY TOPICAL ROUTE 2 TIMES PER DAY active Not Available Not Available No t Available cetirizine 10 mg tablet 02/24 completed Not Available Not Available Not Available azithromyci n 250 mg tablet TAKE 2 TABLETS BY MOUTH TODAY, THEN TAKE 1 TABLET DAILY FOR 4 DAYS DIRECTED 06/12 completed Not Available Not Available Not Available ibuprofen 800 mg tablet TAKE 1 TABLET BY MOUTH TWICE A DAY NEEDED FOR PAIN 06/14 completed Not Available Not Available Not Available tizanidine 4 mg tablet TK 1 T PO Q 6 H PRF SPASM 04/13 completed Not Available Not Available Not Available benzonatate 200 mg capsule Take 1 capsule 3 times a day by oral route for 10 days. 09/01 completed Not Available Not Available Not Available sumatriptan 100 mg tablet TAKE 1 TABLET BY MOUTH AT ONSET OF HEADACHE, MAY REPEAT IN 2 HOURS, DO NOT TAKE MORE THAN 2 TABLETS PER DAY active Not Available Not Available No t Available hydrocodone 5 mg-acetamin ophen 325 mg tablet TAKE 1 TABLET BY MOUTH EVERY DAY NEEDED 02/24 completed Not Available Not Available Not Available tretinoin 0.025 % topical cream CONCHITA QHS TO BACK AND CHEST 11/22 completed Not Available Not Available Not Available senna 8.6 mg tablet TAKE 1-2 TABLETS BY MOUTH EVERYDAY NEEDED FOR CONSTIPAT ION active Not Available Not Available No t Available meloxicam 15 mg tablet TAKE 1 TABLET BY MOUTH EVERY DAY 02/24 completed Not Available Not Available Not Available phenazopyri dine 200 mg tablet TAKE 1 TABLET BY MOUTH THREE TIMES A DAY 09/01 completed Not Available Not Available Not Available prednisone 20 mg tablet TAKE 3TABS DAILY X3DAYS, 2TABS DAILY X3DAYS, 1TAB DAILY X3DAYS, 1/2TAB DAILY X3DAYS 09/04 completed Not Available Not Available Not Available methylpredn isolone 4 mg tablet 09/01 completed Not Available Not Available Not Available amlodipine 5 mg tablet TAKE 1 TABLET BY MOUTH EVERY DAY active Not Available Not Available No t Available ciprofloxac in 500 mg tablet TK 1 T PO Q 12 H FOR 10 DAYS 11/22 completed Not Available Not Available Not Available hydrocodone 10 mg-acetamin ophen 325 mg tablet TAKE 1 TABLET BY MOUTH EVERY 6 HOURS NEEDED 05/17 completed Not Available Not Available Not Available tramadol 50 mg tablet Take 1 tablet 4 times a day by oral route as needed for 30 days. 06/12 completed Not Available Not Available Not Available butalbital- acetaminoph en-caffeine 50 mg-325 mg-40 mg tablet TAKE 1 TABLET BY MOUTH THREE TIMES DAILY 02/24 completed Not Available Not Available Not Available baclofen 20 mg tablet TAKE 1 TABLET BY MOUTH THREE TIMES A DAY NEEDED 06/14 completed Not Available Not Available Not Available ketorolac 10 mg tablet TK ONE T PO Q 8 H 11/22 completed Not Available Not Available Not Available prednisone 10 mg tablets in a dose pack Take 1 tablet every day by oral route as needed. 11/22 completed Not Available Not Available Not Available meloxicam 7.5 mg tablet TAKE 1 TABLET BY MOUTH TWICE A DAY 09/01 completed Not Available Not Available Not Available oxycodone-a cetaminophe n 5 mg-325 mg tablet TAKE 1 TABLET BY MOUTH EVERY 6 HOURS NEEDED 08/09 completed Not Available Not Available Not Available amoxicillin 875 mg tablet 1 po bid x 7 days active Not Available Not Available No t Available IBU 600 mg tablet TAKE 1 TABLET BY MOUTH TWICE A DAY FOR PAIN 06/14 completed Not Available Not Available Not Available tamsulosin 0.4 mg capsule 09/01 completed Not Available Not Available Not Available gabapentin 800 mg tablet TAKE 1 TABLET BY MOUTH EVERY 8 HOURS 02/24 completed Not Available Not Available Not Available trazodone 100 mg tablet TAKE 1 TABLET BY MOUTH EVERY DAY AT BEDTIME NEEDED FOR INSOMNIA active Not Available Not Available No t Available baclofen 10 mg tablet 06/14 completed Not Available Not Available Not Available amlodipine 10 mg tablet TAKE 1 TABLET BY MOUTH EVERY DAY active Not Available Not Available No t Available benzonatate 100 mg capsule 09/01 completed Not Available Not Available Not Available hydrocodone 7.5 mg-acetamin ophen 325 mg tablet TAKE 1 TABLET BY MOUTH EVERY 6 HOURS NEEDED FOR 1 DAYS 02/24 completed Not Available Not Available Not Available cephalexin 500 mg capsule TK 1 C PO Q 12 H FOR 6 DAYS 03/08 completed Not Available Not Available Not Available paroxetine 20 mg tablet 1 tab daily 02/07 completed Not Available Not Available Not Available mirtazapine 30 mg tablet TK 1 T PO QHS active Not Available Not Available No t Available ropinirole 0.5 mg tablet 1 po qhs x 7 days then increase to 1 po bid active Not Available Not Available No t Available lisinopril 10 mg tablet TK 1 T PO QD 04/13 completed Not Available Not Available Not Available ibuprofen 400 mg tablet 02/24 completed Not Available Not Available Not Available indomethaci n 50 mg capsule TAKE 1 CAPSULE BY MOUTH EVERY 8 HOURS NEEDED FOR PAIN CONTROL. TAKE WITH FOOD. 02/24 completed Not Available Not Available Not Available butalbital- aspirin-caf feine 50 mg-325 mg-40 mg capsule TK ONE C PO TID 02/07 completed Not Available Not Available Not Available diclofenac potassium 50 mg tablet Take 1 tablet 3 times a day by oral route. active Not Available Not Available No t Available docusate sodium 100 mg capsule TAKE 1 CAPSULE BY MOUTH TWICE DAILY 02/24 completed Not Available Not Available Not Available gabapentin 300 mg capsule TAKE 1 CAPSULE BY MOUTH EVERY 8 HOURS active Not Available Not Available No t Available Banophen 25 mg capsule TAKE 2 CAPSULES BY MOUTH EVERY 4 HOURS NEEDED active Not Available Not Available No t Available diclofenac sodium 75 mg tablet,tim yed release TAKE 1 TABLET BY MOUTH TWICE A DAY NEEDED 11/06 completed Not Available Not Available Not Available folic acid 1 mg tablet 02/24 completed Not Available Not Available Not Available montelukast 10 mg tablet TK 1 T PO QHS 06/07 completed Not Available Not Available Not Available hydrocodone 5 mg-acetamin ophen 500 mg tablet active Not Available Not Available No t Available gabapentin 100 mg capsule TK 3 CS PO TID 11/22 completed Not Available Not Available Not Available ergocalcife rol (vitamin D2) 1,250 mcg (50,000 unit) capsule 02/24 completed Not Available Not Available Not Available diazepam 10 mg tablet TAKE 1 TABLET BY MOUTH THREE TIMES A DAY FOR 13 DAYS NEEDED 06/14 completed Not Available Not Available Not Available polyethylen e glycol 3350 17 gram/dose oral powder MIX 1 CAPFUL IN 4 8 OZ OF LIQUID DAILY AND DRINK NEEDED FOR CONSTIPAT ION 02/24 completed Not Available Not Available Not Available levofloxaci n 500 mg tablet Take 1 tablet every 24 hours by oral route. 09/01 completed Not Available Not Available Not Available oxycodone-a cetaminophe n 7.5 mg-325 mg tablet TAKE 1 TABLET BY MOUTH EVERY 4 HOURS NEEDED active Not Available Not Available No t Available zolpidem 10 mg tablet TAKE 1 TABLET BY MOUTH EVERY DAY active Not Available Not Available No t Available methylpredn isolone 4 mg tablets in a dose pack TAKE 6 TABLETS ON DAY 1 DIRECTED ON PACKAGE AND DECREASE BY 1 TAB EACH DAY FOR A TOTAL OF 6 DAYS 06/12 completed Not Available Not Available Not Available albuterol sulfate HFA 90 mcg/actuati on aerosol inhaler USE 2 INHALATIO NS EVERY 4 TO 6 HOURS NEEDED FOR WHEEZING AND SHORTNESS OF BREATH active Not Available Not Available No t Available Nasal Decongestan t (pseudoephe drine) 30 mg tablet TAKE 2 TABLETS BY MOUTH EVERY 4 HOURS 03/08 completed Not Available Not Available Not Available oxybutynin chloride 5 mg tablet TK T TID active Not Available Not Available N ot Available ondansetron 4 mg disintegrat ing tablet 09/01 completed Not Available Not Available Not Available fluticasone propionate 50 mcg/actuati on nasal spray,suspe nsion Inhale 2 sprays every day by intranasa l route in the evening. 02/24 completed Not Available Not Available Not Available doxycycline hyclate 100 mg tablet TAKE 1 TABLET BY MOUTH TWICE A DAY FOR 5 DAYS 02/24 completed Not Available Not Available Not Available finasteride 5 mg tablet 02/24 completed Not Available Not Available Not Available loratadine 10 mg tablet TAKE 1 TABLET BY MOUTH EVERY DAY 09/01 completed Not Available Not Available Not Available naproxen 500 mg tablet Take 1 tablet twice a day by oral route. active Not Available Not Available No t Available diazepam 5 mg tablet TAKE 1 TABLET BY MOUTH 3 TIMES A DAY X 30 DAYS 06/14 completed Not Available Not Available Not Available finasteride 1 mg tablet Take 1 tablet every day by oral route. active Not Available Not Available No t Available oxycodone 5 mg tablet TK 1 TO 2 TS PO Q 4 TO 6 HOURS PRN FOR PAIN 11/22 completed Not Available Not Available Not Available Oyster Shell Calcium-500 500 mg (as carbonate 1,250 mg) tablet 02/24 completed Not Available Not Available Not Available dutasteride 0.5 mg capsule TAKE 5 CAPSULES BY MOUTH ONCE DAILY 02/24 completed Not Available Not Available Not Available cyclobenzap rine 5 mg tablet TK 1 T PO TID 11/22 completed Not Available Not Available Not Available duloxetine 30 mg capsule,del ayed release TAKE 1 CAPSULE BY MOUTH EVERY DAY 06/07 completed Not Available Not Available Not Available duloxetine 60 mg capsule,del ayed release TAKE 1 CAPSULE BY MOUTH EVERY DAY active Not Available Not Available No t Available eszopiclone 3 mg tablet TAKE 1 TABLET BY MOUTH EVERY DAY 02/24 completed Not Available Not Available Not Available tizanidine 4 mg capsule TK ONE C PO Q 6 H PRF MUSCLE SPASMS 11/22 completed Not Available Not Available Not Available pregabalin 150 mg capsule TAKE 1 CAPSULE BY MOUTH TWICE A DAY 09/01 completed Not Available Not Available Not Available Lyrica 75 mg capsule TAKE 1 CAPSULE BY MOUTH TWICE A DAY active Not Available Not Available No t Available Symbicort 160 mcg-4.5 mcg/actuati on HFA aerosol inhaler Inhale 2 puffs twice a day by inhalatio n route. 02/24 completed Not Available Not Available Not Available budesonide- formoterol HFA 80 mcg-4.5 mcg/actuati on aerosol inhaler Inhale 2 puffs twice a day by inhalatio n route. 02/24 completed Not Available Not Available Not Available cholecalcif tarsha (vitamin D3) 1,250 mcg (50,000 unit) capsule TAKE 1 CAPSULE BY MOUTH ONE TIME PER WEEK FOR 90 DAYS active Not Available Not Available No t Available diclofenac 1 % topical gel 02/24 completed Not Available Not Available Not Available butalbital- acetaminoph en-caffeine 50 mg-300 mg-40 mg capsule TAKE ONE CAPSULE BY MOUTH THREE TIMES DAILY 04/13 completed Not Available Not Available Not Available buprenorphi ne 10 mcg/hour weekly transdermal patch 06/14 completed Not Available Not Available Not Available lidocaine 5 % topical ointment 02/24 completed Not Available Not Available Not Available Combivent Respimat 20 mcg-100 mcg/actuati on solution for inhalation active Not Available Not Available N ot Available EpiPen 2-Parmjit 0.3 mg/0.3 mL injection, auto-inject or Take 0.3 mL as needed by injection route as directed for 1 day. active Not Available Not Available No t Available Stimulant Laxative Plus 8.6 mg-50 mg tablet 09/04 completed Not Available Not Available Not Available OxyContin 20 mg tablet,jacinta h resistant,e xtended release active Not Available Not Available Not Available Belbuca [address] 1 film twice a day by buccal route. 01/20 completed Not Available Not Available Not Available Relistor 150 mg tablet 02/24 completed Not Available Not Available Not Available Linzess 72 mcg capsule TAKE 1 CAPSULE BY MOUTH EVERY DAY 09/01 completed Not Available Not Available Not Available Vitals Date Recorded Body height Body mass index (BMI) Body weight Body temperature Heart rate Oxygen saturation Oxygen saturation in Arterial blood by Pulse oximetry Systolic And Diastolic Provider Name and Address Organization Details Last Updated DateTime 5 175.26 cm 28.9 kg/m2 68663.6 7 g 97.4 [degF] 84 /min 93 % 93 % 110/66 mm[Hg] Leeanne Garcia [place] [facility] 5 10:03:08 Date Recorded Body height Body mass index (BMI) Body weight Body temperature Heart rate Systolic And Diastolic Provider Name and Address Organization Details Last Updated DateTime 5 175.26 cm 28.4 kg/m2 70498.7 4 g 97.9 [degF] 86 /min 120/92 mm[Hg] Lexie Herrera Linda [facility] 5 10:09:51 Date Recorded Body height Body mass index (BMI) Body weight Body temperature Heart rate Oxygen saturation Oxygen saturation in Arterial blood by Pulse oximetry Systolic And Diastolic Provider Name and Address Organization Details Last Updated DateTime 5 175.26 cm 27.5 kg/m2 19134.1 8 g 98.2 [degF] 99 /min 96 % 96 % 124/68 mm[Hg] Leeanne Garcia MA [facility] 5 09:41:57 Date Recorded Body height Body mass index (BMI) Body weight Body temperature Heart rate Systolic And Diastolic Provider Name and Address Organization Details Last Updated DateTime 4 175.26 cm 28.9 kg/m2 28451.1 g 98.2 [degF] 90 /min 120/86 mm[Hg] Lexie Herrera Linda [facility] 4 10:05:28 Social History Question Answer Notes LastModified by Organizat ion Details LastModified Time Tobacco Smoking Status Never Smoker Not Available [employer] 07/05/2022 06:57:05 Do You Have An Advance Directive? No [id number] Information not available 07/05/2022 What Is Your Level Of Caffeine Consumption? Moderate [id number] Information not available 07/05/2022 In The 14 Days Before Symptom Onset, Have You Had Close Contact With A Laboratory-confi rmed COVID-19 While That Case Was Ill? No [id number] Information not available 07/05/2022 In The 14 Days Before Symptom Onset, Have You Had Close Contact With A Person Who Is Under Investigation For COVID-19 While That Person Was Ill? No [id number] Information not available 07/05/2022 What Type Of Diet Are You Following? REGULAR MIGRATION.25901 [id number] Information not available 07/05/2022 What Is The Highest Grade Or Level Of School You Have Completed Or The Highest Degree You Have Received? [id number] Information not available 02/25/2024 Do You Have An Electrostatic Air Filter? No Information not available 06/12/2024 What Is The Fluoride Status Of Your Home? Unknown Information not available 02/25/2024 Are There Any Guns Present In Your Home? Yes Information not available 02/25/2024 Do You Have A Humidifier? Yes When Sick Information not available 06/12/2024 Where [facility] You Live? [facility] Information not available 02/25/2024 Do You Have A Medical Power Of Plastic Tool Maker? No Information not available 02/25/2024 Do You Have Moisture Problems In Your Home? No Information not available 06/12/2024 What Was The Date Of Your Most Recent Tobacco Screening? 10/22/2024 Information not available 10/22/2024 Have You Ever Been Counseled For Unhealthy Alcohol Use? No Information not available 09/06/2022 Do You Have Any Pets? Yes Information not available 02/25/2024 What Is Your Relationship Status? Single Information not available 02/25/2024 Do You Use Your Seat Belt Or Car Seat Routinely? Yes Information not available 02/25/2024 Do You Have Smoke And Carbon Monoxide Detectors In Your Home? Yes Information not available 02/25/2024 Are You Passively Exposed To Smoke? Yes Information not available 02/25/2024 Are There Any Smokers In Your House? Yes Information not available 02/25/2024 Do You Use Sunscreen Routinely? No MIGRATION.56179 [id number] Information not available 07/05/2022 Has Tobacco Cessation Counseling Been Provided? No N/a Information not available 02/25/2024 Have You Recently Traveled Abroad? No MIGRATION.[id number] Information not available 07/05/2022 Do You Have Any Dietary Restrictions? No MIGRATION.00218 63717 Information not available 07/05/2022 Sex: Unknown Functional Status Question Answer Note LastModified by Organizat ion Details LastModified Time Do you use any illicit or recreational drugs? No [id number] Information not available 07/05/2022 Do you or have you ever used any other forms of tobacco or nicotine? No Information not available 09/06/2022 What is your level of alcohol consumption? Occasional MIGRATION.068026 [id number] Information not available 07/05/2022 Are you currently employed? Yes Information not available 02/25/2024 Have you been exposed to chemicals or toxins? 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 Moderate MIGRATION.[id number] Information not available 07/05/2022 Mental Status Question Answer Note LastModified by Organization D etails LastModified Time Do you feel stressed (tense, restless, nervous, or anxious, or unable to sleep at night)? [id number] Information not available 02/25/2024 Family History Relationship Description Onset Age of this Age Resolved Age Notes LastModified by Organization Details LastModified Time Mother Hypertensive disorder Not available 2023 10:00:00 Mother Pancreatitis Not avai lable 07/28/2024 10:07:24 Father Diabetes mellitus Not available 2023 10:00:07 Paternal Grandfather Family history of stroke Not available 2023 10:00:36 Notes:no family history of s tones Medical History Condition Response BLINDNESS N RHEUMATIC FEVER N BLADDER PROBLEMS N KIDNEY STONES Y MRSA N OTHER # 1 N POLIO N LUNG DISEASE/DISORDER N RADIATION / CHEMOTHERAPY N COPD N Other # 2 N BLOOD DISEASES N SURGERY N EAR OR HEARING PROBLEMS N MUMPS N FEMALE PROBLEMS / INFECTIONS N DEPRESSION (INCLUDING POST ) N BOWEL PROBLEMS N STROKE/TIA N THYROID DISEASE N ULCERS N BENIGN PROSTATIC HYPERPLASIA N MEASLES N CERVICALGIA N TB SKIN TEST N MYOCARDIAL INFARCTION N PARAPELGIA N OBESITY N GERD/NAUSEA N ANEURYSM N URINARY/BLADDER/KIDNEY PROBLEMS N CORONARY ARTERY DISEASE (CAD) N MENIERE'S DISEASE N ADDICTION CONCERNS N ENDOMETRIOSIS N USE OF BLOOD THINNERS N SKIN PROBLEMS N EMPHYSEMA N GASTROINTESTINAL DISORDER N MUSCLE,JOINT OR BONE PROBLEMS N GASTROINTESTINAL BLEEDING N BLOOD CLOTS N ASTHMA N CATARACTS N ERECTILE DYSFUNCTION N GI PROBLEMS N CHF N Low Testosterone N NEUROPATHY N INFERTILITY N AIDS/HIV N FRACTURES N CHEMOTHERAPY / RADIATION N VISION/EYE PROBLEMS N LIVER DISEASE N MALE HYPOGONADISM N HYPERTENSION N ANXIETY DISORDER N BLOOD TRANSFUSION N ANEMIA/BLOOD DISORDER N CHRONIC EAR INFECTIONS N BRONCHITIS N TUBERCULOSIS N GLAUCOMA N FOOT PROBLEM N DIVERTICULITIS N SLEEP APNEA N CHICKENPOX N ALLERGIES/HAYFEVER N INFECTIOUS DISEASE N PROSTATE N HEART ARRHYTHMIA N INSOMNIA N HIGH CHOLESTEROL / HYPERLIPIDEMIA N EYE PROBLEMS N HYPERTHYROIDISM N EATING DISORDER N NEUROLOGICAL PROBLEMS N EDEMA N CHRONIC PAIN SYNDROME N HYPOTHYROIDISM N CAROTID BLOCKAGE N CONSTIPATION N BACK / NECK PROBLEMS N HAVE YOU BEEN HOSPITALIZED OR SEEN IN [facility] IN THE PAST YEAR ? N ATHEROSCLEROSIS N BREAST PROBLEMS N DIALYSIS N ECZEMA N FIBROMYALGIA N OSTEOPOROSIS N ARTHRITIS N NO SIGNIFICANT PAST MEDICAL HISTORY N APPENDICITIS N DIABETES, TYPE N BAD TEETH N HEARTBURN / REFLUX N ADD/ADHD N AUTISM SPECTRUM DISORDER (ASD) N HEPATITIS / LIVER DISEASE N PULMONARY DISEASE N GOUT N SLEEP DISORDER N ALZHEIMER'S DISEASE N PAIN N DEMENTIA N HERPES N SEIZURES/EPILEPSY N HEADACHES/MIGRAINES N VASCULAR DISEASE N PACEMAKER N DIZZINESS N HEART DISEASE/HEART PROBLEMS N KIDNEY DISEASE N SCARLET FEVER N MULTIPLE SCLEROSIS N DEVELOPMENTAL OR BEHAVIORAL DISORDERS N MENTAL DISORDER/ILLNESS N CANCER: SPECIFY N CARDIAC ARRHYTHMIA N PNEUMONIA N ATRIAL FIBRILLATION N Gall Stones N PULMONARY EMBOLISM N AUTOIMMUNE DISEASE N Immunizations Vaccine Type Date Status Note Provider Nam e and Address Organization Details Recorded Time Tdap 2 completed Not Available [facility] 03/21/2023 19:54:00 pneumococcal polysaccharide PPV23 4 completed Not Available [facility] 03/21/2023 19:54:00 Past Encounters Encounter ID Performer Location Encounter Start Date Encounter Closed Date Diagnosis/Indication Diagnosis SNOMED-CT Code Diagnosis ICD10 Code Diagnosis Note [id number] [facility] [address] [place] [address] 08/09/2020 00:00:00 09/02/2020 10:27:03 [id number] MD [facility] [address] [place] [address] 10/19/2020 00:00:00 10/19/2020 09:01:58 [id number] [facility] [address] [place] [address] 01/20/2021 00:00:00 01/30/2021 20:33:48 [id number] Slime Mares MD [facility] Primary Care Paula [address]e [address] [facility] [address] [place] [address] 02/17/2021 00:00:00 02/17/2021 12:04:11 [id number] Slime Mares MD [facility] Primary Care Paula dav[address]e [address] [facility] [address] [place] [address] 12/01/2021 00:00:00 12/01/2021 09:52:04 [id number] NEGRITO Beauchamp [facility] Primary Care [place] [address] [facility] [address] [place] [address] 06/14/2022 00:00:00 06/14/2022 18:29:19 [id number] NEGRITO Beauchamp [facility] Primary Care Paula daviese [address] [place] [address] [address] [place] [address] 07/19/2022 09:41:08 07/19/2022 10:40:18 [id number] Slime Mares MD [facility] Primary Care Paula daviese [address] [place] [address] [address] [place] [address] 07/24/2022 08:44:23 07/24/2022 09:17:46 Degeneration of lumbar intervertebral disc 38484787 M51.36 seeing neurosurge ry and has upcoming appt to discuss another surgerytra madol 50 mg up to 4x per day, discussed that we cannot prescribe anything stronger long termbegin cymbalta as belowgabap entin refill givenIL prescripti on monitoring website reviewed and printedPt understand s this medication has risk for abuse/depe ndence and agrees to take it only as prescribed and to guard from loss/theft Mixed anxi ety and depressive disorder 924089741 F41.8 begin duloxetine 30 mg daily with foodReview ed potential med s/e, d/c and be seen if any si/hif/u in 4 weeks or sooner if needed Asthma 780710126 J45.90 9 stablerefi ll given Hyperlipidemia 36618489 E78.5 continue healthy diet/exerc isehas lost weight intentiona lly Prediabetes 951280046 R7 3.03 continue healthy diet/exerc isehas lost weight intentiona lly [id number] Slime Mares MD [facility] Primary Care [address] [address] 09/06/2022 11:58:53 09/06/2022 12:27:44 Degeneration of lumbar intervertebral disc 44260165 M51.36 seeing neurosurge ry and is being referred for possible stimulator implanttra madol 50 mg up to 4x per day, discussed that we cannot prescribe anything stronger long termincrea se cymbaltaIL prescripti on monitoring website reviewedPt understand s this medication has risk for abuse/depe ndence and agrees to take it only as prescribed and to guard from loss/theft Mixed anxi ety and depressive disorder 953558335 F41.8 no improvemen tincrease duloxetine 60 mg daily with foodReview ed potential med s/e, d/c and be seen if any si/hif/u in 4 weeks or sooner if needed Essential hypertension 03121402 I10 stablerefi ll given Asthma 259943227 J45.90 9 not in good controlref ill given [id number] Slime Mares MD [facility] Primary Care [address] [address] 09/28/2022 10:29:44 09/28/2022 10:34:20 [id number] Slime Mares MD [facility] Primary Care [address] [address] 12/07/2022 11:38:41 12/07/2022 12:10:20 Essential hypertension 59327963 I10 stablerefi ll given Prediabetes 914584353 R7 3.03 continue healthy diet/exerc isehas lost weight intentiona lly Hyperlipidemia 32958758 E78.5 continue healthy diet/exerc isehas lost weight intentiona lly Urgent milo devin to urinate 28727066 R39.15 R35.89 Check UA and PSAIf normal, consider urology referral [id number] Slime Mares MD [facility] Primary Care [facility] [address] [facility] [address] [place] [address] 03/08/2023 08:53:10 03/08/2023 09:09:49 Asthma 100053178 J45.909 stable, refill given Degenerati on of lumbar intervertebral disc 83105123 M51.36 seeing neurosurge ry and is being referred for possible stimulator implanttra madol 50 mg up to 4x per day, discussed that we cannot prescribe anything stronger long termcontin ue cymbaltaIL prescripti on monitoring website reviewedPt understand s this medication has risk for abuse/depe ndence and agrees to take it only as prescribed and to guard from loss/theft [id number] Slime Mares MD [facility] Primary Care [address] [place] [address] 06/07/2023 09:46:27 06/07/2023 10:18:08 Essential hypertension 36746905 I10 stablerefi ll given Prediabetes 220750485 R7 3.03 continue healthy diet/exerc ise Hyperlipidemia 80843037 E78.5 Z79.899 continue healthy diet/exerc isecheck labs Degenerati on of lumbar intervertebral disc 33518501 M51.36 seeing neurosurge ry and is being referred for possible stimulator implanttra madol 50 mg up to 4x per day, discussed that we cannot prescribe anything stronger long termcontin ue cymbaltaIL prescripti on monitoring website reviewedPt understand s this medication has risk for abuse/depe ndence and agrees to take it only as prescribed and to guard from loss/theft Mixed anxi ety and depressive disorder 506158757 F41.8 no improvemen tincrease duloxetine 60 mg daily with foodReview ed potential med s/e, d/c and be seen if any si/hif/u in 4 weeks or sooner if needed [id number] Slime Mares MD [facility] Primary Care [address] [place] [address] 09/05/2023 10:22:41 09/05/2023 11:03:53 Constipation 62758172 K59.00 can't tolerate liquid laxativesi ncrease fluid and fiber in diet Degenerati on of lumbar intervertebral disc 72543602 M51.36 seeing neurosurge ry and is being referred for possible stimulator implanttra madol 50 mg up to 4x per day,contin ue cymbaltaIL prescripti on monitoring website reviewedPt understand s this medication has risk for abuse/depe ndence and agrees to take it only as prescribed and to guard from loss/theft MRI scan abnormal 556828 003 R93.89 MRI thoracic spine 08/02/23 showed hyperinten se T2 lesion, will get postcontra st MRI for further evaluation [id number] YOSHI Wray [facility] Primary Care Paula hernandez [address] [place] [address] 10/08/2023 11:56:05 10/08/2023 12:20:19 [id number] Yany gore MD [facility] Internal Med Joycelyn hernandez [address] [facility] y , [place] [address] 02/25/2024 09:49:24 02/25/2024 11:15:29 Screening - NAD 174766866 Z13.9 Get yearly flu shot, get tdapGet COVID 19 vaccines, and its RTC in 6 months, do labs, ER if worse, he is very appreciati ve to this plan of care Essential hypertension 29599889 I10 On amlodipine 10mg dailyGet labs Prediabetes 423302780 R7 3.03 Get labs Chronic pain 37248907 G8 9.29 S/p multiple lumbar spinal surgeries and now is s/p pain stimulator , states that 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 On tramadol 50mg 4 times a dayGiven by Dr Benitez pain management Mixed anxi ety and depressive disorder 584657482 F41.8 On duloxetine 60mg dailyNot suicidal or homicidalD eclines a referral to psychiatry Vitamin D deficiency 347 09006 E55.9 [id number] Yany gore MD [facility] Primary Care Paula hernandez [address] [place] [address] 05/26/2024 10:39:54 05/26/2024 11:08:41 [id number] Nohemi Hammer NP [facility] [place] [address] [facility] [address] [place] [address] 06/12/2024 09:53:41 06/12/2024 11:24:25 Asthma without status asthmaticus 29715528 J45.909 ACT on no maintenanc e inhaler: 15PFT orderedRAS T allergy panel and lab work orderCXR 2023-wnlAs thma Action plan discussedU se Albuterol only PRN-if using more discussed need for re-evaluat ionIn depth discussion about s/s that require evaluation Return once PFT done-soone r if new or worsening of s/s [id number] Yany gore MD [facility] Primary [facility] [address] [facility] [address] [place] [address] 07/28/2024 09:56:48 07/28/2024 10:36:13 Screening - NAD 212463538 Z13.9 Get yearly flu shot, get tdapGet COVID 19 vaccines, and its RTC in 3 months, do labs, ER if worse, he is very appreciati ve to this plan of care Essential hypertension 67827228 I10 On amlodipine 10mg dailyGet labs Chronic pain 87201033 G8 9.29 S/p multiple lumbar spinal surgeries and now is s/p pain stimulator , 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 SYSTEMS ADMINISTRATOR pulmonary 06/12/2024 , she did order PFTs for him Erythrocytosis 029377461 D75.1 Get a referral to hematology [id number] Yany gore MD [facility] Primary Care Paula hernandez [address] [facility] [address] [place] [address] 10/22/2024 09:33:57 10/22/2024 10:20:11 Screening - NAD 367779323 Z13.9 Get yearly flu shot, get tdapGet COVID 19 vaccines, and its RTC in 3 months, do labs, ER if worse, he is very appreciati ve to this plan of care Essential hypertension 96424773 I10 On amlodipine 10mg dailyGet labs Chronic pain 52847917 G8 9.29 S/p multiple lumbar spinal surgeries and now is s/p pain stimulator , states that 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 SYSTEMS ADMINISTRATOR pulmonary 06/12/2024 , she did order PFTs for him Erythrocytosis 911896315 D75.1 Get a referral to hematology Health Concerns Section Related Observation LastModified by Organization Detai ls LastModified Time None Recorded Concern Status LastModified by Organization Details LastModified Time None Recorded Advance Directives Directive N: Payers Insurance Date Sequence Insurance Name Policy Number Policy Arreaga Covered Member ID Arreaga Member ID Guarantor Name 10/19/2024 1 [facility] [id number] Alli Benoit [id number] Alli Benoit 02/25/2024 BLAKEHER MEEK [id number] Alli Benoit 02/25/2024 [facility] [id number] Alli Benoit 02/25/2024 HAYDEN MEEK [id number] Alli Benoit Notes Date Note Type Note Provider Name and Address Organization Details Recorded Time 4 text/html OV 02/25/2024:Here to establish care Present Hx:HTNPrediabetesChronic painMixed anxiety and depressive disorderamlodipineHere to discuss the above, and get labs, he does want his refills on the and duloxetine Yany Michaud MD [address], [place], [address], [employer] 02/25/2024 17:05:49 5 text/html AsthmaReported bypatient.Severity:no decrease in activities of daily living Timing:chronic Context:allergic rhinitis; recurrent bronchitis Aggravating Factors:inhaled respirator irritants; changes in weather; respiratory infection; animal dander Associated Symptoms:no fever; no fatigue; no anorexia; no tachypnea; no retractions; no sleep disturbance;cough;dyspnea;w heeze Prior Tests and Treatments:short-acting beta agonistNotes:last week had URI-breathing was difficult-relief with rescue inhaler-otherwise only using albuterol 1-2 times a 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-at that time has seen shot packer, and was on maintenance inhaler-been several years since being on maintenance-still has neb and rescue albuterol Nohemi Hammer NP [address], [place], [address], [employer] [facility] [employer] 06/12/2024 10:51:05 5 text/html OV 02/25/2024:Here to establish care Present Hx:HTNPrediabetesChronic painMixed anxiety and depressive disorderamlodipineHere to discuss the above, and get labs, he does want his refills on the and duloxetine OV 07/28/2024: Here for his f/u apt, he is doing well today, he did do the labs Yany Michaud MD [address], [place], [address], [place] [employer] 07/28/2024 10:38:38 text/html OV 02/25/2024:Here to establish care Present Hx:HTNPrediabetesChronic painMixed anxiety and depressive disorderamlodipineHere to discuss the above, and get labs, he does want his refills on the and duloxetine OV 07/28/2024: Here for his f/u apt, he is doing well today, he did do the labs OV 10/22/2024: Here for his f/u apt, he states that he is doing well today Yany Michaud MD [address] [facility], [facility] [address], [place], [address], [facility] [employer] [facility] 10/22/2024 18:54:48
--- OUTSIDE RECORDS SUMMARY | 2024-11-06 11:26 | XMS_ITS | Patient Health Record ---
Author Organization [facility] Address [address] [place] [address] GUERO Beasley [address] Care Team Providers Care Allergy Specialist Name Role Phone MD VINCE, GUMARO Primary Care Provider U Rigoberto Samuels Unavailable [phone] SABINA CAM CHARLES Unavailable Unavailable ALLERGIES No Known Allergies RESULTS Component Value Reference Range Notes [facility] Results (Not yet reviewed by provider) Interpretation: Performing Lab:[id number] [facility], [address] [address] [facility] [address] Amber Huntley MD Notes/Report: Codeine Quantification negative 50 ng/mL Morphine Quantification negative 50 ng/mL Hydrocodone Quantification positive-33999.505 50 ng/mL Norhydrocodone Quantification positive-5836.735 50 ng/ mL Hydromorphone Quantification positive-1068.721 50 ng/m L Oxycodone Quantification negative 50 ng/mL Noroxycodone Quantification negative 50 ng/mL Oxymorphone Quantification negative 50 ng/mL Fentanyl Quantification positive-1.324 1 ng/mL Norfentanyl Quantification negative 8 ng/mL Methadone Quantification negative 100 ng/mL EDDP (Methadone metabolite) Quantification negative 100 ng/mL Tramadol Quantification negative 100 ng/mL A-rmxronzyv-uzuszizw Quantification negative 100 n g/mL H-Uaxwyecfj-Dunwichu Quantification negative 100 n g/mL Alpha-Hydroxyalprazolam Quantification negative 20 ng/mL 3-Ipmly-Ynukfzvnlb Quantification negative 20 ng/m L Lorazepam Quantification negative 40 ng/mL Nordiazepam Quantification negative 40 ng/mL Temazepam Quantification negative 50 ng/mL Oxazepam Quantification negative 40 ng/mL Amphetamine Quantification negative 100 ng/mL Methamphetamine Quantification negative 100 ng/mL Cocaine metabolite Quantification negative 50 ng/m L cTHC (Marijuana metabolite) Quantification negative 15 ng/mL 6-FAUZIA (Heroin metabolite) Quantification negative 10 ng/mL Acetyl fentanyl Quantification negative 2 ng/mL Acetyl norfentanyl Quantification negative 5 ng/mL Acryl fentanyl Quantification negative 1 ng/mL Carfentanil Quantification negative 2 ng/mL Para-fluorofentanyl Quantification negative 1 ng/m L Mitragynine (Kratom alkaloid) Quantification negative 1 ng/mL 2-EX-Miywfedvqck (Kratom alk aloid) Quantification negative 1 ng/mL Ethyl Glucuronide Quantification negative 500 ng/m L Ethyl Sulfate Quantification negative 500 ng/mL REASON FOR REFERRAL No Information MEDICATIONS Medication SIG (Take, Route, Frequency, Duration) [...] twice a day for 5 days Active methylPREDNISolone 4 MG as directed Orally 024 Active Albuterol Sulfate HFA 108 (9 0 Base) MCG/ACT 1 puff as needed Inhalation every 4 hrs Active Albuterol 2 MG 1 tablet Orally Thre e times a day for 30 day(s) Active Ventolin HFA 108 (90 Base) MCG/ACT (Prior Auth: Rx Ref#:[id number]) Inhalation for 17 Active DULoxetine HCl 60 MG TAKE 1 [...] Notes Are you a nonsmoker Section Notes: 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 He denies tobacco and drug use. He does admit to drinking alcohol occasionally. 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 He denies tobacco and drug use. He does admit to drinking alcohol occasionally. 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 He denies tobacco and drug use. He does admit to drinking alcohol occasionally. 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 He denies tobacco and drug use. He does admit to drinking alcohol occasionally. 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 He denies tobacco and drug use. He does admit to drinking alcohol occasionally. 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 He denies tobacco and drug use. He does admit to drinking alcohol occasionally. 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 He denies tobacco and drug use. He does admit to drinking alcohol occasionally. 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 He denies tobacco and drug use. He does admit to drinking alcohol occasionally. 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 He denies tobacco and drug use. He does admit to drinking alcohol occasionally. 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 He denies tobacco and drug use. He does admit to drinking alcohol occasionally. 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 He denies tobacco and drug use. He does admit to drinking alcohol occasionally. 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 He denies tobacco and drug use. He does admit to drinking alcohol occasionally. 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 He denies tobacco and drug use. He does admit to drinking alcohol occasionally. 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 He denies tobacco and drug use. He does admit to drinking alcohol occasionally. 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 He denies tobacco and drug use. He does admit to drinking alcohol occasionally. 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 He denies tobacco and drug use. He does admit to drinking alcohol occasionally. 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 He denies tobacco and drug use. He does admit to drinking alcohol occasionally. 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 He denies tobacco and drug use. He does admit to drinking alcohol occasionally. 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 He denies tobacco and drug use. He does admit to drinking alcohol occasionally. 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 He denies tobacco and drug use. He does admit to drinking alcohol occasionally. 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 He denies tobacco and drug use. He does admit to drinking alcohol occasionally. 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 He denies tobacco and drug use. He does admit to drinking alcohol occasionally. 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 He denies tobacco and drug use. He does admit to drinking alcohol occasionally. 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 He denies tobacco and drug use. He does admit to drinking alcohol occasionally. 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 He denies tobacco and drug use. He does admit to drinking alcohol occasionally. 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 He denies tobacco and drug use. He does admit to drinking alcohol occasionally. 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 He denies tobacco and drug use. He does admit to drinking alcohol occasionally. 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 He denies tobacco and drug use. He does admit to drinking alcohol occasionally. 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 He denies tobacco and drug use. He does admit to drinking alcohol occasionally. 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 He denies tobacco and drug use. He does admit to drinking alcohol occasionally. 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 He denies tobacco and drug use. He does admit to drinking alcohol occasionally. 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 He denies tobacco and drug use. He does admit to drinking alcohol occasionally. 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 He denies tobacco and drug use. He does admit to drinking alcohol occasionally. 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 He denies tobacco and drug use. He does admit to drinking alcohol occasionally. 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 He denies tobacco and drug use. He does admit to drinking alcohol occasionally. 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 He denies tobacco and drug use. He does admit to drinking alcohol occasionally. 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 He denies tobacco and drug use. He does admit to drinking alcohol occasionally. 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 He denies tobacco and drug use. He does admit to drinking alcohol occasionally. 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 He denies tobacco and drug use. He does admit to drinking alcohol occasionally. 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 He denies tobacco and drug use. He does admit to drinking alcohol occasionally. 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 He denies tobacco and drug use. He does admit to drinking alcohol occasionally. 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 He denies tobacco and drug use. He does admit to drinking alcohol occasionally. 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 He denies tobacco and drug use. He does admit to drinking alcohol occasionally. 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 He denies tobacco and drug use. He does admit to drinking alcohol occasionally. 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 He denies tobacco and drug use. He does admit to drinking alcohol occasionally. 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 He denies tobacco and drug use. He does admit to drinking alcohol occasionally. 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 He denies tobacco and drug use. He does admit to drinking alcohol occasionally. 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 He denies tobacco and drug use. He does admit to drinking alcohol occasionally. 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 He denies tobacco and drug use. He does admit to drinking alcohol occasionally. 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 He denies tobacco and drug use. He does admit to drinking alcohol occasionally. 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 He denies tobacco and drug use. He does admit to drinking alcohol occasionally. 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 He denies tobacco and drug use. He does admit to drinking alcohol occasionally. 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 He denies tobacco and drug use. He does admit to drinking alcohol occasionally. 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 He denies tobacco and drug use. He does admit to drinking alcohol occasionally. 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 He denies tobacco and drug use. He does admit to drinking alcohol occasionally. 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 He denies tobacco and drug use. He does admit to drinking alcohol occasionally. 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 He denies tobacco and drug use. He does admit to drinking alcohol occasionally. 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 He denies tobacco and drug use. He does admit to drinking alcohol occasionally. 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 He denies tobacco and drug use. He does admit to drinking alcohol occasionally. 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 He denies tobacco and drug use. He does admit to drinking alcohol occasionally. 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 He denies tobacco and drug use. He does admit to drinking alcohol occasionally. 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 He denies tobacco and drug use. He does admit to drinking alcohol occasionally. 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 He denies tobacco and drug use. He does admit to drinking alcohol occasionally. 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 He denies tobacco and drug use. He does admit to drinking alcohol occasionally. 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 He denies tobacco and drug use. He does admit to drinking alcohol occasionally. 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 He denies tobacco and drug use. He does admit to drinking alcohol occasionally. 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 He denies tobacco and drug use. He does admit to drinking alcohol occasionally. 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 He denies tobacco and drug use. He does admit to drinking alcohol occasionally. 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 He denies tobacco and drug use. He does admit to drinking alcohol occasionally. 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 He denies tobacco and drug use. He does admit to drinking alcohol occasionally. 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 He denies tobacco and drug use. He does admit to drinking alcohol occasionally. 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 He denies tobacco and drug use. He does admit to drinking alcohol occasionally. 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 He denies tobacco and drug use. He does admit to drinking alcohol occasionally. 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 He denies tobacco and drug use. He does admit to drinking alcohol occasionally. 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 He denies tobacco and drug use. He does admit to drinking alcohol occasionally. 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 He denies tobacco and drug use. He does admit to drinking alcohol occasionally. 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 He denies tobacco and drug use. He does admit to drinking alcohol occasionally. 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 He denies tobacco and drug use. He does admit to drinking alcohol occasionally. 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 He denies tobacco and drug use. He does admit to drinking alcohol occasionally. 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 He denies tobacco and drug use. He does admit to drinking alcohol occasionally. 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 He denies tobacco and drug use. He does admit to drinking alcohol occasionally. 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 He denies tobacco and drug use. He does admit to drinking alcohol occasionally. 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 He denies tobacco and drug use. He does admit to drinking alcohol occasionally. 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 He denies tobacco and drug use. He does admit to drinking alcohol occasionally. 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 He denies tobacco and drug use. He does admit to drinking alcohol occasionally. 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 He denies tobacco and drug use. He does admit to drinking alcohol occasionally. 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 He denies tobacco and drug use. He does admit to drinking alcohol occasionally. 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 He denies tobacco and drug use. He does admit to drinking alcohol occasionally. PROBLEMS Problem Type ICD Code Onset Dates Problem Status W/U Status Risk SNOMED Code Notes Problem Fear of injections and transfusions (F40.231) Active confirmed Fear of medical treatment (426728484) Problem Mononeuropathy, unspecified (G58.9) Active confirmed Mononeuropathy (648646352) Problem Chronic pain syndrome (G89.4) Active confirmed Chronic higinio n syndrome (491451841) Problem Unspecified internal derangement of unspecified knee (M23.90) Active confirmed Derangement of knee (75755189) Problem Pain in left knee (M25.562) Active confirmed Pain of left kn ee joint (finding) (919525901411384) Problem Sacroiliitis, not elsewhere classified (M46.1) Active confirmed Solitary sacroiliitis (422257362) Problem Spondylosis without myelopathy or radiculopathy, lumbar region (M47.816) Active confirmed Lumbosacral spondylosis without myelopathy (30656691) Problem Spondylosis without myelopathy or radiculopathy, lumbosacral region (M47.817) Active confirmed Lumbosacral spondylosis without myelopathy (disorder) (40354016) Problem Intervertebral disc disorders with radiculopathy, lumbosacral region (M51.17) Active confirmed Lumbosacral radiculopathy (1250768) Problem Other specified dorsopathies, lumbar region (M53.86) Active confirmed Disorder of sacrum (65950617) Problem Radiculopathy, cervical region (M54.12) Active confirmed Cervical radiculopathy (42395121) Problem Radiculopathy, lumbar region (M54.16) Active confirmed Lumbar radiculopathy (666800589) Problem Radiculopathy, lumbosacral region (M54.17) Active confirmed Lumbosacral radiculopathy (0112420) Problem Muscle spasm of back (M62.830) Active confirmed Spasm of back muscles (772625478) Problem Muscle spasm of calf (M62.831) Active confirmed Spasm (14523738) Problem Other muscle spasm (M62.838) Active confirmed Spasm (53980963) Problem Postlaminectomy syndrome, not elsewhere classified (M96.1) Active confirmed Post-lami nectomy syndrome (16988626) Problem Osseous stenosis of neural canal of lumbar region (M99.33) Active confirmed Spinal stenosis of lumbar region (56435959) Problem 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 Patient discharged to, home, ambulatory, and in no acute distress. Blood pressure diastolic 92 mm Hg 10/17/2024 Height 5 ft 10 in in 10/17/2024 Blood pressure systolic 132 mm Hg 10/17/2024 Weight 195 lbs 10/17/2024 BMI 27.98 kg/m2 10/17/2024 Encounters Encounter Location Date Provider Diagnosis [facility] [address] [place] [id number] 11/26/2023 Rigoberto Ramsay [facility] [address] [place] [address] [place] [address] 11/28/2023 Rigoberto Ramsay Radiculopathy, lumba r region M54.16 ; Radiculopathy, lumbosacral region M54.17 ; Sacroiliitis, not elsewhere classified M46.1 ; Spondylosis without myelopathy or radiculopathy, lumbar region M47.816 ; Spondylosis without myelopathy or radiculopathy, lumbosacral region M47.817 and Postlaminectomy syndrome, not elsewhere classified M96.1 [facility] [address] [place] [address] [place] [address] 11/29/2023 Rigoberto Stynowick Postlaminectomy syndrome, not elsewhere classified M96.1 ; Radiculopathy, lumbar region M54.16 ; Radiculopathy, lumbosacral region M54.17 ; Osseous stenosis of neural canal of lumbar region M99.33 ; Sacroiliitis, not elsewhere classified M46.1 ; 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 ; Drug induced constipation K59.03 ; Chronic pain syndrome G89.4 and 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 [facility] [address] [place] [address] [place] [address] 12/04/2023 Rigoberto Stynowick Radiculopathy, lumba r region M54.16 [facility] [address] [place] [phone] 12/05/2023 Rigoberto Stynowick Radiculopathy, lumba r region M54.16 ; Postlaminectomy syndrome, not elsewhere classified M96.1 ; Chronic pain syndrome G89.4 and 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 [facility] [address] [place] [phone] 12/06/2023 Rigoberto Stynowick [facility] [address] [place] [address] [place] [address] 12/10/2023 Rigoberto Stynowick Postlaminectomy syndrome, not elsewhere classified M96.1 ; Radiculopathy, lumbar region M54.16 ; Radiculopathy, lumbosacral region M54.17 ; Osseous stenosis of neural canal of lumbar region M99.33 ; Sacroiliitis, not elsewhere classified M46.1 ; jail (current) use of opiate analgesic Z79.891 ; Drug induced constipation K59.03 ; Chronic pain syndrome G89.4 and 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 [address] 12/26/2023 Rigoberto Stynowick Radiculopathy, lumba r region M54.16 ; Postlaminectomy syndrome, not elsewhere classified M96.1 and Chronic pain syndrome G89.4 [facility] [address] [facility] [place] [address] 12/26/2023 Rigoberto Stynowick Radiculopathy, lumba r region M54.16 [facility] [address] [facility] [place] [address] 12/26/2023 Rigoberto Stynowick [facility] [address] [facility] [place] [address] 12/26/2023 Rigoberto Stynowick Radiculopathy, lumba r region M54.16 [facility] [address] [place] [address] [place] [address] 12/27/2023 Rigoberto Stynowick Radiculopathy, lumba r region M54.16 [facility] [address] [place] [address] [facility] [place] [address] 12/27/2023 Rigoberto Stynowick [facility] [address] [facility] [place] [address] 12/28/2023 Rigoberto Stynowick [facility] [address] [facility] [place] [address] 01/02/2024 Rigoberto Stynowick Postlaminectomy syndrome, not elsewhere classified M96.1 ; Radiculopathy, lumbar region M54.16 ; Radiculopathy, lumbosacral region M54.17 ; Osseous stenosis of neural canal of lumbar region M99.33 ; Sacroiliitis, not elsewhere classified M46.1 ; 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 ; Drug induced constipation K59.03 ; Chronic pain syndrome G89.4 and 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 [facility] [address] [facility] [place] [address] 01/08/2024 Rigoberto Stynowick Radiculopathy, lumba r region M54.16 [facility] [address] [facility] [place] [address] 01/09/2024 Rigoberto Stynowick Postlaminectomy syndrome, not elsewhere classified M96.1 ; Radiculopathy, lumbar region M54.16 ; Radiculopathy, lumbosacral region M54.17 ; Osseous stenosis of neural canal of lumbar region M99.33 ; Sacroiliitis, not elsewhere classified M46.1 ; 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 ; Drug induced constipation K59.03 ; Chronic pain syndrome G89.4 and 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 [facility] [address] [place] [phone] 01/23/2024 Rigoberto Stynowick Postlaminectomy syndrome, not elsewhere classified M96.1 ; Radiculopathy, lumbar region M54.16 ; Radiculopathy, lumbosacral region M54.17 ; Osseous stenosis of neural canal of lumbar region M99.33 ; Sacroiliitis, not elsewhere classified M46.1 ; jail (current) use of opiate analgesic Z79.891 ; Drug induced constipation K59.03 ; Chronic pain syndrome G89.4 and 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 [facility] [address] [place] [address] 02/06/2024 Rigoberto Stynowick Postlaminectomy syndrome, not elsewhere classified M96.1 ; Radiculopathy, lumbar region M54.16 ; Radiculopathy, lumbosacral region M54.17 ; Osseous stenosis of neural canal of lumbar region M99.33 ; Sacroiliitis, not elsewhere classified M46.1 ; 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 ; Drug induced constipation K59.03 ; Chronic pain syndrome G89.4 and 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 [facility] [address] [place] [phone] 02/07/2024 Rigoberto Stynowick [facility] [address] [place] [address] 03/06/2024 Rigoberto Stynowick Radiculopathy, lumba r region M54.16 ; Sacroiliitis, not elsewhere classified M46.1 ; Postlaminectomy syndrome, not elsewhere classified M96.1 ; Radiculopathy, lumbosacral region M54.17 ; Osseous stenosis of neural canal of lumbar region M99.33 ; jail (current) use of opiate analgesic Z79.891 ; Drug induced constipation K59.03 ; Chronic pain syndrome G89.4 and 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 [facility] [address] [place] [phone] 03/25/2024 Rigoberto Stynowbryan Sacroiliitis, not elsewhere classified M46.1 [facility] [address] [place] [address] [place] [address] 03/26/2024 Rigoebrto Stynowick [facility] [address] [place] [phone] 04/07/2024 Rigoberto Stynowick Radiculopathy, lumba r region M54.16 ; Sacroiliitis, not elsewhere classified M46.1 ; Postlaminectomy syndrome, not elsewhere classified M96.1 ; Radiculopathy, lumbosacral region M54.17 ; Osseous stenosis of neural canal of lumbar region M99.33 ; jail (current) use of opiate analgesic Z79.891 ; Drug induced constipation K59.03 ; Chronic pain syndrome G89.4 and 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 [facility] [address] [place] [address] [place] [address] 04/09/2024 Rigoberto Stynowick [facility] [address] [place] [phone] 06/24/2024 Rigoberto Stynowick Radiculopathy, lumba r region M54.16 ; Sacroiliitis, not elsewhere classified M46.1 ; Postlaminectomy syndrome, not elsewhere classified M96.1 ; Radiculopathy, lumbosacral region M54.17 ; Osseous stenosis of neural canal of lumbar region M99.33 ; 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 ; Drug induced constipation K59.03 ; Chronic pain syndrome G89.4 and 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 [facility] [address] [place] [phone] 06/26/2024 Rigoberto Stynowick Postlaminectomy syndrome, not elsewhere classified M96.1 ; Radiculopathy, lumbar region M54.16 ; Radiculopathy, lumbosacral region M54.17 ; Osseous stenosis of neural canal of lumbar region M99.33 ; Sacroiliitis, not elsewhere classified M46.1 ; jail (current) use of opiate analgesic Z79.891 ; Drug induced constipation K59.03 ; Chronic pain syndrome G89.4 and 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 [facility] [address] [place] [phone] 07/01/2024 Rigoberto Stynowick Sacroiliitis, not elsewhere classified M46.1 ; Postlaminectomy syndrome, not elsewhere classified M96.1 ; Radiculopathy, lumbar region M54.16 ; Radiculopathy, lumbosacral region M54.17 ; Osseous stenosis of neural canal of lumbar region M99.33 ; 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 ; Drug induced constipation K59.03 ; Chronic pain syndrome G89.4 and 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 [facility] [address] [place] [phone] 07/11/2024 Rigoberto Stynowick Mononeuropathy, unspecified G58.9 [facility] [address] [place] [phone] 07/28/2024 Rigoberto Stynowick Sacroiliitis, not elsewhere classified M46.1 ; Postlaminectomy syndrome, not elsewhere classified M96.1 ; Radiculopathy, lumbar region M54.16 ; Radiculopathy, lumbosacral region M54.17 ; Osseous stenosis of neural canal of lumbar region M99.33 ; jail (current) use of opiate analgesic Z79.891 ; Drug induced constipation K59.03 ; Chronic pain syndrome G89.4 and 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 [facility] [address] [place] [phone] 07/30/2024 Rigoberto Stynowick Postlaminectomy syndrome, not elsewhere classified M96.1 ; Mononeuropathy, unspecified G58.9 ; Sacroiliitis, not elsewhere classified M46.1 ; Radiculopathy, lumbar region M54.16 ; Radiculopathy, lumbosacral region M54.17 ; Osseous stenosis of neural canal of lumbar region M99.33 ; jail (current) use of opiate analgesic Z79.891 ; Drug induced constipation K59.03 ; Chronic pain syndrome G89.4 and 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 [facility] [address] [facility] [place] [address] 08/04/2024 Rigoberto Stynowick [facility] [address] [facility] [place] [address] 08/22/2024 Rigoberto Stynowick Mononeuropathy, unspecified G58.9 [facility] [address] [facility] [place] [address] 09/10/2024 Rigoberto Stynowick Postlaminectomy syndrome, not elsewhere classified M96.1 ; Mononeuropathy, unspecified G58.9 ; Sacroiliitis, not elsewhere classified M46.1 ; Radiculopathy, lumbar region M54.16 ; Radiculopathy, lumbosacral region M54.17 ; Osseous stenosis of neural canal of lumbar region M99.33 ; jail (current) use of opiate analgesic Z79.891 ; Drug induced constipation K59.03 ; Chronic pain syndrome G89.4 and 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 [facility] [address] [facility] [place] [address] 09/19/2024 Rigoberto Stynowick [facility] [address] [facility] [place] [address] 10/03/2024 Rigoberto Stynowick Mononeuropathy, unspecified G58.9 [facility] [address] [facility] [place] [address] 10/17/2024 Rigoberto Stynowick Mononeuropathy, unspecified G58.9 ; Radiculopathy, lumbosacral region M54.17 ; Sacroiliitis, not elsewhere classified M46.1 ; Spondylosis without myelopathy or radiculopathy, lumbar region M47.816 ; Spondylosis without myelopathy or radiculopathy, lumbosacral region M47.817 ; Postlaminectomy syndrome, not elsewhere classified M96.1 and Radiculopathy, lumbar region M54.16 ASSESSMENTS Encounter Date Diagnosis Assessment Notes Treatment Notes Treatment Clinical Notes Section Notes 11/28/2023 Radiculopathy, lumbar region (ICD-10 - M54.16) The patient would like to move forward with Spinal cord stimulation trial for more durable relief of his low back and lower extremity pain and the patient was given a DVD and brochure for more information. He would like to schedule a spinal cord stimulator trial at this time. The risks of this procedure including pain, bleeding, infection, epidural hematoma, spinal headache, persistent spinal fluid leak, nerve damage, spinal cord injury, paralysis, worsening pain and failure to relieve pain were discussed and the patient is agreeable to proceeding at this time. 11/29/2023 Postlaminectomy syndrome, not elsewhere classified (ICD-10 - M96.1) 12/04/2023 Radiculopathy, lumbar region (ICD-10 - M54.16) 12/05/2023 Radiculopathy, lumbar region (ICD-10 - M54.16) 12/10/2023 Postlaminectomy syndrome, not elsewhere classified (ICD-10 - M96.1) 12/26/2023 Radiculopathy, lumbar region (ICD-10 - M54.16) The side effects of opioid analgesics including sedation, constipation potentially resulting in bowel obstruction, respiratory depression, tolerance, addiction, hyperalgesia, withdrawal after abrupt discontinuation, immunosuppression and endocrine abnormalities such as hypocortisolism and hypogonadism resulting in sexual dysfunction which may become permanent were discussed and the patient expressed an understanding of the above. The patient was advised to avoid driving, climbing ladders and operating dangerous machinery after taking this medication. The patient was advised to avoid consuming alcohol, illicit drugs and sedative/hypnotic drugs in conjunction with this medication due to the risk of profound respiratory depression and . The patient was directed to utilize the lowest effective dose possible. The importance of safe storage and keeping opioid medications locked up at all times in order to prevent theft and unintended consumption by friends, relatives or anyone else was discussed with the patient at length. The patient agrees to fully comply with the above. The [place] and [place] PDMP were reviewed and were appropriate 12/26/2023 Postlaminectomy syndrome, not elsewhere classified (ICD-10 - M96.1) 12/26/2023 Radiculopathy, lumbar region (ICD-10 - M54.16) 12/26/2023 Radiculopathy, lumbar region (ICD-10 - M54.16) 12/27/2023 Radiculopathy, lumbar region (ICD-10 - M54.16) 01/02/2024 Postlaminectomy syndrome, not elsewhere classified (ICD-10 - M96.1) 01/08/2024 Radiculopathy, lumbar region (ICD-10 - M54.16) 01/09/2024 Postlaminectomy syndrome, not elsewhere classified (ICD-10 - M96.1) The side effects of opioid analgesics including sedation, constipation potentially resulting in bowel obstruction, respiratory depression, tolerance, addiction, hyperalgesia, withdrawal after abrupt discontinuation, immunosuppression and endocrine abnormalities such as hypocortisolism and hypogonadism resulting in sexual dysfunction which may become permanent were discussed and the patient expressed an understanding of the above. The patient was advised to avoid driving, climbing ladders and operating dangerous machinery after taking this medication. The patient was advised to avoid consuming alcohol, illicit drugs and sedative/hypnotic drugs in conjunction with this medication due to the risk of profound respiratory depression and . The patient was directed to utilize the lowest effective dose possible. The importance of safe storage and keeping opioid medications locked up at all times in order to prevent theft and unintended consumption by friends, relatives or anyone else was discussed with the patient at length. The patient agrees to fully comply with the above. The [place] and [place] PDMP were reviewed and were appropriate. Continue activity restrictions and wound care. 01/23/2024 Postlaminectomy syndrome, not elsewhere classified (ICD-10 - M96.1) 02/06/2024 Postlaminectomy syndrome, not elsewhere classified (ICD-10 - M96.1) 03/06/2024 Sacroiliitis, not elsewhere classified (ICD-10 - M46.1) schedule a bilateral sacroiliac joint injection. The risks of this procedure including pain, bleeding, infection, insomnia, hyperglycemia, hair loss, muscle atrophy, skin depigmentation, weight gain, fluid retention, adrenal suppression, immunosuppression, osteoporosis resulting in fractures, avascular necrosis of the hip, cataracts, bleeding gastric ulcer, worsening pain and failure to relieve pain were discussed and the patient is agreeable to proceeding at this time. 03/06/2024 Radiculopathy, lumbar region (ICD-10 - M54.16) The side effects of opioid analgesics including sedation, constipation potentially resulting in bowel obstruction, respiratory depression, tolerance, addiction, hyperalgesia, withdrawal after abrupt discontinuation, immunosuppression and endocrine abnormalities such as hypocortisolism and hypogonadism resulting in sexual dysfunction which may become permanent were discussed and the patient expressed an understanding of the above. The patient was advised to avoid driving, climbing ladders and operating dangerous machinery after taking this medication. The patient was advised to avoid consuming alcohol, illicit drugs and sedative/hypnotic drugs in conjunction with this medication due to the risk of profound respiratory depression and . The patient was directed to utilize the lowest effective dose possible. The importance of safe storage and keeping opioid medications locked up at all times in order to prevent theft and unintended consumption by friends, relatives or anyone else was discussed with the patient at length. The patient agrees to fully comply with the above. The [place] and [place] PDMP were reviewed and were appropriate The patient's SCS was interrogated reprogrammed in the office today with improved axial low back and bilateral lower extremity neuropathic pain coverage with good paresthesia overlap 03/25/2024 Sacroiliitis, not elsewhere classified (ICD-10 - M46.1) 04/07/2024 Radiculopathy, lumbar region (ICD-10 - M54.16) 06/24/2024 Radiculopathy, lumbar region (ICD-10 - M54.16) 06/26/2024 Postlaminectomy syndrome, not elsewhere classified (ICD-10 - M96.1) 07/01/2024 Sacroiliitis, not elsewhere classified (ICD-10 - M46.1) 07/01/2024 Postlaminectomy syndrome, not elsewhere classified (ICD-10 - M96.1) Schedule a bilateral Cluneal nerve injection. The risks of this procedure including pain, bleeding, infection, spinal headache, persistent spinal fluid leak, epidural hematoma, nerve damage, spinal cord injury, paralysis, total spinal anesthesia resulting in cardiopulmonary arrest/, respiratory distress requiring intubation, insomnia, hyperglycemia, hair loss, muscle atrophy, skin depigmentation, weight gain, fluid retention, adrenal suppression, immunosuppression, osteoporosis resulting in fractures, avascular necrosis of the hip, cataracts, bleeding gastric ulcer, worsening pain and failure to relieve pain were discussed and the patient is agreeable to proceeding at this time. 07/11/2024 Mononeuropathy, unspecified (ICD-10 - G58.9) 07/28/2024 Sacroiliitis, not elsewhere classified (ICD-10 - M46.1) 07/30/2024 Mononeuropathy, unspecified (ICD-10 - G58.9) Schedule a bilateral middle Cluneal nerve injection. The risks of this procedure including pain, bleeding, infection, spinal headache, persistent spinal fluid leak, epidural hematoma, nerve damage, spinal cord injury, paralysis, total spinal anesthesia resulting in cardiopulmonary arrest/, respiratory distress requiring intubation, insomnia, hyperglycemia, hair loss, muscle atrophy, skin depigmentation, weight gain, fluid retention, adrenal suppression, immunosuppression, osteoporosis resulting in fractures, avascular necrosis of the hip, cataracts, bleeding gastric ulcer, worsening pain and failure to relieve pain were discussed and the patient is agreeable to proceeding at this time. 07/30/2024 Postlaminectomy syndrome, not elsewhere classified (ICD-10 - M96.1) 08/22/2024 Mononeuropathy, unspecified (ICD-10 - G58.9) 09/10/2024 Mononeuropathy, unspecified (ICD-10 - G58.9) 09/10/2024 Postlaminectomy syndrome, not elsewhere classified (ICD-10 - M96.1) Schedule a bilateral Cluneal nerve injection. The risks of this procedure including pain, bleeding, infection, spinal headache, persistent spinal fluid leak, epidural hematoma, nerve damage, spinal cord injury, paralysis, total spinal anesthesia resulting in cardiopulmonary arrest/, respiratory distress requiring intubation, insomnia, hyperglycemia, hair loss, muscle atrophy, skin depigmentation, weight gain, fluid retention, adrenal suppression, immunosuppression, osteoporosis resulting in fractures, avascular necrosis of the hip, cataracts, bleeding gastric ulcer, worsening pain and failure to relieve pain were discussed and the patient is agreeable to proceeding at this time 10/03/2024 Mononeuropathy, unspecified (ICD-10 - G58.9) 10/17/2024 Mononeuropathy, unspecified (ICD-10 - G58.9) The [...] 10/17/2024 Radiculopathy, lumbosacral region (ICD-10 - M54.17) 09/10/2024 Sacroiliitis, not elsewhere classified (ICD-10 - M46.1) 10/17/2024 Sacroiliitis, not elsewhere classified (ICD-10 - M46.1) 07/30/2024 Sacroiliitis, not elsewhere classified (ICD-10 - M46.1) 07/28/2024 Postlaminectomy syndrome, not elsewhere classified (ICD-10 - M96.1) 07/01/2024 Radiculopathy, lumbar region (ICD-10 - M54.16) 06/24/2024 Sacroiliitis, not elsewhere classified (ICD-10 - M46.1) 06/26/2024 Radiculopathy, lumbar region (ICD-10 - M54.16) 04/07/2024 Sacroiliitis, not elsewhere classified (ICD-10 - M46.1) 03/06/2024 Postlaminectomy syndrome, not elsewhere classified (ICD-10 - M96.1) 02/06/2024 Radiculopathy, lumbar region (ICD-10 - M54.16) The patient's SCS was interrogated reprogrammed in the office today with improved axial low back and bilateral lower extremity neuropathic pain coverage with good paresthesia overlap. He currently denies a need for any injections or interventions at this time. He would like to return to the office in 1 month for follow-up and reevaluation of his pain at that time. We discussed decreasing patient's hydrocodone/acetamin ophen 5/325 prescription from twice daily to once daily with plans to discontinue in the future. Patient's urine drug screen was also positive for fentanyl, which is not prescribed by this office. He was given this medication during a recent spinal cord stimulator implantation. The side effects of opioid analgesics including sedation, constipation potentially resulting in bowel obstruction, respiratory depression, tolerance, addiction, hyperalgesia, withdrawal after abrupt discontinuation, immunosuppression and endocrine abnormalities such as hypocortisolism and hypogonadism resulting in sexual dysfunction which may become permanent were discussed and the patient expressed an understanding of the above. The patient was advised to avoid driving, climbing ladders and operating dangerous machinery after taking this medication. The patient was advised to avoid consuming alcohol, illicit drugs and sedative/hypnotic drugs in conjunction with this medication due to the risk of profound respiratory depression and . The patient was directed to utilize the lowest effective dose possible. The importance of safe storage and keeping opioid medications locked up at all times in order to prevent theft and unintended consumption by friends, relatives or anyone else was discussed with the patient at length. The patient agrees to fully comply with the above. The [place] PDMP were reviewed and were appropriate 02/06/2024 Radiculopathy, lumbosacral region (ICD-10 - M54.17) 01/23/2024 Radiculopathy, lumbar region (ICD-10 - M54.16) The patient's SCS was interrogated reprogrammed in the office today with improved axial low back and bilateral lower extremity neuropathic pain coverage with good paresthesia overlap. He currently denies a need for any injections or interventions at this time. He would like to return to the office in 1 month for follow-up and reevaluation of his pain at that time. 01/23/2024 Radiculopathy, lumbosacral region (ICD-10 - M54.17) 01/02/2024 Radiculopathy, lumbar region (ICD-10 - M54.16) The patient's SCS was interrogated reprogrammed in the office today with improved axial low back and bilateral lower extremity neuropathic pain coverage with good paresthesia overlap The patient was instructed to continue avoiding submerging in the water, however she is advised to continue daily showers. Additionally, the patient was educated to contact the office in case of fever, bleeding or significant drainage from postoperative incisions. She verbalizes good understanding of that He currently denies a need for any injections or interventions at this time. He would like to return to the office in 1 week for follow-up and reevaluation of his pain at that time. 01/02/2024 Radiculopathy, lumbosacral region (ICD-10 - M54.17) 01/09/2024 Radiculopathy, lumbar region (ICD-10 - M54.16) The patient's SCS was interrogated reprogrammed in the office today with improved axial low back and bilateral lower extremity neuropathic pain coverage with good paresthesia overlap. 01/09/2024 Radiculopathy, lumbosacral region (ICD-10 - M54.17) 12/26/2023 Chronic pain syndrome (ICD-10 - G89.4) 12/05/2023 Postlaminectomy syndrome, not elsewhere classified (ICD-10 - M96.1) 12/05/2023 Chronic pain syndrome (ICD-10 - G89.4) 12/10/2023 Radiculopathy, lumbar region (ICD-10 - M54.16) Injection sites are clean, dry and intact. Both spinal cord stimulator leads were removed without resistance and were completely intact. Neosporin ointment and Band-Aids were applied at the injection sites, The patient was instructed to continue avoiding submerging in the water for 24 hours, however she is advised to continue daily showers. Additionally, the patient was educated to contact the office in case of fever, bleeding or significant drainage from injection sites. He verbalizes good understanding of that, Schedule a permanent spinal cord stimulator implantation. The risks of this procedure including pain, bleeding, infection, epidural hematoma, spinal headache, persistent spinal fluid leak, nerve damage, spinal cord injury, paralysis, worsening pain and failure to relieve pain were discussed and the patient is agreeable to proceeding at this time. The inherent risks of anesthesia including airway obstruction resulting in cardiopulmonary arrest and were also discussed and the patient is agreeable to proceeding at this time 12/10/2023 Radiculopathy, lumbosacral region (ICD-10 - M54.17) 11/29/2023 Radiculopathy, lumbar region (ICD-10 - M54.16) The side effects of opioid analgesics including sedation, constipation potentially resulting in bowel obstruction, respiratory depression, tolerance, addiction, hyperalgesia, withdrawal after abrupt discontinuation, immunosuppression and endocrine abnormalities such as hypocortisolism and hypogonadism resulting in sexual dysfunction which may become permanent were discussed and the patient expressed an understanding of the above. The patient was advised to avoid driving, climbing ladders and operating dangerous machinery after taking this medication. The patient was advised to avoid consuming alcohol, illicit drugs and sedative/hypnotic drugs in conjunction with this medication due to the risk of profound respiratory depression and . The patient was directed to utilize the lowest effective dose possible. The importance of safe storage and keeping opioid medications locked up at all times in order to prevent theft and unintended consumption by friends, relatives or anyone else was discussed with the patient at length. The patient agrees to fully comply with the above. 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) 01/09/2024 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) 01/23/2024 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) 02/06/2024 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) 04/07/2024 Postlaminectomy syndrome, not elsewhere classified (ICD-10 - M96.1) 03/06/2024 Radiculopathy, lumbosacral region (ICD-10 - M54.17) 06/26/2024 Radiculopathy, lumbosacral region (ICD-10 - M54.17) 06/24/2024 Postlaminectomy syndrome, not elsewhere classified (ICD-10 - M96.1) 07/01/2024 Radiculopathy, lumbosacral region (ICD-10 - M54.17) 07/30/2024 Radiculopathy, lumbar region (ICD-10 - M54.16) 07/28/2024 Radiculopathy, lumbar region (ICD-10 - M54.16) 10/17/2024 Spondylosis without myelopathy or radiculopathy, lumbar region (ICD-10 - M47.816) 09/10/2024 Radiculopathy, lumbar region (ICD-10 - M54.16) The patient's SCS was interrogated reprogrammed in the office today with improved axial low back and bilateral lower extremity neuropathic pain coverage with good paresthesia overlap 09/10/2024 Radiculopathy, lumbosacral region (ICD-10 - M54.17) 10/17/2024 Spondylosis without myelopathy or radiculopathy, lumbosacral region (ICD-10 - M47.817) 07/28/2024 Radiculopathy, lumbosacral region (ICD-10 - M54.17) 07/01/2024 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) 07/30/2024 Radiculopathy, lumbosacral region (ICD-10 - M54.17) 06/26/2024 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) 04/07/2024 Radiculopathy, lumbosacral region (ICD-10 - M54.17) 06/24/2024 Radiculopathy, lumbosacral region (ICD-10 - M54.17) 03/06/2024 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) 02/06/2024 Sacroiliitis, not elsewhere classified (ICD-10 - M46.1) 01/23/2024 Sacroiliitis, not elsewhere classified (ICD-10 - M46.1) 01/09/2024 Sacroiliitis, not elsewhere classified (ICD-10 - M46.1) 12/10/2023 Sacroiliitis, not elsewhere classified (ICD-10 - M46.1) 01/02/2024 Sacroiliitis, not elsewhere classified (ICD-10 - M46.1) 11/29/2023 Sacroiliitis, not elsewhere classified (ICD-10 - M46.1) 11/28/2023 Spondylosis without myelopathy or radiculopathy, lumbar region (ICD-10 - M47.816) 11/28/2023 Spondylosis without myelopathy or radiculopathy, lumbosacral region (ICD-10 - M47.817) 11/29/2023 jail (current) use of opiate analgesic (ICD-10 - Z79.891) 01/02/2024 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) 06/26/2024 Sacroiliitis, not elsewhere classified (ICD-10 - M46.1) 06/24/2024 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) 07/28/2024 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) 07/01/2024 jail (current) use of opiate analgesic (ICD-10 - Z79.891) 09/10/2024 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) 07/30/2024 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) 10/17/2024 Postlaminectomy syndrome, not elsewhere classified (ICD-10 - M96.1) 07/30/2024 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 (ICD-10 - Z79.891) 09/10/2024 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 (ICD-10 - Z79.891) 10/17/2024 Radiculopathy, lumbar region (ICD-10 - M54.16) 07/01/2024 Drug induced constipation (ICD-10 - K59.03) 07/28/2024 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 (ICD-10 - Z79.891) 06/24/2024 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 (ICD-10 - Z79.891) 06/26/2024 jail (current) use of opiate analgesic (ICD-10 - Z79.891) 04/07/2024 jail (current) use of opiate analgesic (ICD-10 - Z79.891) 02/06/2024 Drug induced constipation (ICD-10 - K59.03) 03/06/2024 Drug induced constipation (ICD-10 - K59.03) 01/23/2024 Drug induced constipation (ICD-10 - K59.03) 01/09/2024 Drug induced constipation (ICD-10 - K59.03) 12/10/2023 Drug induced constipation (ICD-10 - K59.03) 01/02/2024 Drug induced constipation (ICD-10 - K59.03) 11/29/2023 Drug induced constipation (ICD-10 - K59.03) 11/28/2023 Postlaminectomy syndrome, not elsewhere classified (ICD-10 - M96.1) 11/29/2023 Chronic pain syndrome (ICD-10 - G89.4) 12/10/2023 Chronic pain syndrome (ICD-10 - G89.4) The patient was given a handout explaining the preoperative bathing instructions 01/02/2024 Chronic pain syndrome (ICD-10 - G89.4) 01/23/2024 Chronic pain syndrome (ICD-10 - G89.4) 01/09/2024 Chronic pain syndrome (ICD-10 - G89.4) The patient was given Dr. Lionel Rodriguez's contact information and will call to schedule a new patient appointment. 02/06/2024 Chronic pain syndrome (ICD-10 - G89.4) 04/07/2024 Drug induced constipation (ICD-10 - K59.03) 03/06/2024 Chronic pain syndrome (ICD-10 - G89.4) 06/26/2024 Drug induced constipation (ICD-10 - K59.03) 07/01/2024 Chronic pain syndrome (ICD-10 - G89.4) 06/24/2024 Drug induced constipation (ICD-10 - K59.03) 07/28/2024 Drug induced constipation (ICD-10 - K59.03) 09/10/2024 Drug induced constipation (ICD-10 - K59.03) 07/30/2024 Drug induced constipation (ICD-10 - K59.03) 09/10/2024 Chronic pain syndrome (ICD-10 - G89.4) 07/28/2024 Chronic pain syndrome (ICD-10 - G89.4) 07/30/2024 Chronic pain syndrome (ICD-10 - G89.4) 06/26/2024 Chronic pain syndrome (ICD-10 - G89.4) 07/01/2024 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) 04/07/2024 Chronic pain syndrome (ICD-10 - G89.4) 06/24/2024 Chronic pain syndrome (ICD-10 - G89.4) 02/06/2024 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 The patient was advised he may drink clear liquids up until 2 hours prior to the procedure, but was instructed not to eat for 8 hours prior to the procedure. The inherent risks of anesthesia up to and including airway obstruction potentially resulting in cardiac arrest and were also discussed and the patient is agreeable to proceeding at this time. 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 This note was dictated by YOSHI Black 12/05/2023 Other The patient voiced understanding of the treatment plan and all questions were addressed. Obtain informed consent: Spinal Cord Stimulation Trial under fluoroscopy. Monitor pulse, blood pressure and SaO2 before, after and as needed during procedure. Verify if the patient is currently taking blood thinner. Verify patients is not currently on antibiotics for infection The patient may not drive home CARE PLAN: Knowledge deficit: Will verbalize understanding of the proposed procedure, including risk of electrical burn, complications and benefits of the procedure? Will the patient exhibit understanding of the discharge instructions? Safety: The potential for injury related to surgery was assessed; Fire risk score determined, test completed if applicable. Risk for injury related to wrong patient, site, procedure. TIME OUT for safety of patient and includes patient name, , procedure site, side, level, allergies, blood thinners, antibiotics, surgical counts, consents correct and signed etc. Risk for infection: Implements aseptic technique, protects from cross-contamination, performs skin preparations. Pain/Discomfort: Patient verbalizes acceptable level of pain relief prior to discharge and the ability to engage in desired activity. I HAVE REVIEWED THE PATIENT'S MEDICATION LIST AND HAVE RECONCILED THE ABOVE MEDICATIONS. PATIENT GOALS AND SAFETY CONCERNS HAVE BEEN ADDRESSED. RN initials se 12/10/2023 Other The patient was instructed to take this medication following their permanent SCS placement to prevent infection The above-named patient was evaluated in conjunction [...] occurred. This note was dictated by YOSHI Black 12/26/2023 Other The patient voiced understanding of the treatment plan and all questions were addressed. Obtain informed consent: Spinal Cord Stimulator Permanent Implant under fluoroscopy. Monitor pulse, blood pressure and SaO2 before, after and as needed during procedure. Verify if the patient is currently taking blood thinner. Verify patients is not currently on antibiotics for infection The patient may not drive home CARE PLAN: Knowledge deficit: Will verbalize understanding of the proposed procedure, including risk of electrical burn, complications and benefits of the procedure? Will the patient exhibit understanding of the discharge instructions? Safety: The potential for injury related to surgery was assessed; Fire risk score determined, test completed if applicable. Risk for injury related to wrong patient, site, procedure. TIME OUT for safety of patient and includes patient name, , procedure site, side, level, allergies, blood thinners, antibiotics, surgical counts, consents correct and signed etc. Risk for infection: Implements aseptic technique, protects from cross-contamination, performs skin preparations. Pain/Discomfort: Patient verbalizes acceptable level of pain relief prior to discharge and the ability to engage in desired activity. I HAVE REVIEWED THE PATIENT'S MEDICATION LIST AND HAVE RECONCILED THE ABOVE MEDICATIONS. PATIENT GOALS AND SAFETY CONCERNS HAVE BEEN ADDRESSED. RN initials SW. 01/02/2024 Other The patient was instructed to take this medication following their SCS implantto prevent infection The above-named patient was evaluated in conjunction [...] occurred. This note was dictated by YOSHI Black 01/23/2024 Other The above-named patient was evaluated in [...] occurred. This note was dictated by YOSHI Black 02/06/2024 Other The above-named patient was evaluated in [...] with Patient and Medical Decision Makin minutes 03/06/2024 Other The above-named patient was evaluated in [...] with Patient and Medical Decision Makin minutes 03/25/2024 Other The patient voiced understanding of the treatment plan and all questions were addressed. Obtain informed consent: Bilateral Sacroiliac Joint Injection under fluoroscopy. Monitor pulse, blood pressure and SaO2 before, after and as needed during procedure. Verify if the patient is currently taking blood thinner. Verify patients is not currently on antibiotics for infection. Patient may drive home. CARE PLAN: Knowledge deficit: Will verbalize understanding of the proposed procedure, including risk of electrical burn, complications and benefits of the procedure? Will the patient exhibit understanding of the discharge instructions? Safety: The potential for injury related to surgery was assessed; Fire risk score determined, test completed if applicable. Risk for injury related to wrong patient, site, procedure. TIME OUT for safety of patient and includes patient name, , procedure site, side, level, allergies, blood thinners, antibiotics, surgical counts, consents correct and signed etc. Risk for infection: Implements aseptic technique, protects from cross-contamination, performs skin preparations. Pain/Discomfort: Patient verbalizes acceptable level of pain relief prior to discharge and the ability to engage in desired activity. I HAVE REVIEWED THE PATIENT'S MEDICATION LIST AND HAVE RECONCILED THE ABOVE MEDICATIONS. PATIENT GOALS AND SAFETY CONCERNS HAVE BEEN ADDRESSED. ALIZE hutchisons RADHIKA. 07/01/2024 Other The above-named patient was evaluated in [...] with Patient and Medical Decision Makin minutes 07/30/2024 Other The above-named patient was evaluated in [...] with Patient and Medical Decision Makin minutes 09/10/2024 Other The above-named patient was evaluated in [...] with Patient and Medical Decision Makin minutes 10/17/2024 Other The above-named patient was evaluated [...] Medical Decision Makin minutes PLAN OF TREATMENT Pending Test Test Name Order Date MRI : Knee, left 02/09/2020 MRI : Knee, right 02/09/2020 [facility] 10/04/2021 [facility] 11/28/2021 [facility] 11/09/2022 [facility] 12/05/2022 [facility] 03/09/2023 [facility] 05/09/2023 [facility] 09/11/2023 [facility] 01/02/2024 Insurance Providers Payer Name Payer Address Payer Phone Subscriber Number Group Number Insured Name Patient Relationship to Insured Coverage Start Date Coverage End Date [facility] [employer] PL[employer] [address] [address] [place] [address] [id number] RISKOVSK RAUL Quinones Self - patient is the insured Trever Callahan [id number] RISKOVSK YRAUL Self - patient is the insured Shivam [facility] [address] [place] [address] RISKOVSK YRAUL Self - patient is the insured MEDICAL (GENERAL) HISTORY Medical History History ICD Code Asthma Kidney stones Hypertension Surgical History Surgery Date(Month/Year) L5-S1 Discectomy and Laminectomy 2016 Lithotripsy Left L5-S1 lumbar microdiscectomy 2018 L5-S1 Spinal Fusion - Dr. Clinton 1 SCS Implantation ([facility]) - Dr. Negrita charles 12/26/23
[2024-11-06 11:35] LABS: Hematocrit 48.7 % (42.0-52.0); Hemoglobin 17.6 g/dL (14.0-18.0); Immature Granulocyte Percent A 0.2 % (0-0.5); Lymphocytes Absolute Auto 1.73 K/mm3 (0.9-3.2); Mean Corpuscular HGB Conc 36.1 g/dl (32-36); Mean Corpuscular Hemoglobin 27.4 pg (26-34); Mean Corpuscular Volume 75.9 fl (80-100); Nucleated Red Blood Cells Absolute Auto 0.000 K/mm3 (0.0-0.012); Nucleated Red Blood Cells Perc 0.0 % (0.0-0.2); Platelet Count Result 266 k/mm3 (150-375); Red Blood Count 6.42 M/mm3 (4.6-6.20); White Blood Count 9.0 K/mm3 (4.5-10.0)
[2024-11-06 13:03] LABS: Alanine Aminotransferase 29 U/L (6-50); Albumin Level 4.7 g/dL (3.5-5.1); Alkaline Phosphatase 85 U/L (38-126); Anion Gap 12 mmol/L (4-12); Aspartate Amino Transferase 50 U/L (17-59); Bilirubin,Total 1.1 mg/dL (0.2-1.3); Blood Urea Nitrogen 10 mg/dL (9-20); Calcium 9.7 mg/dL (8.4-10.2); Carbon Dioxide 25 mmol/L (22-30); Chloride 102 mmol/L (98-107); Estimated Glomerular Filt Rate > 60; Glucose 110 mg/dL (65-110); Potassium 4.3 mmol/L (3.4-5.0); Sodium 139 mmol/L (137-145); Total Protein 8.1 g/dL (6.3-8.2)
[2024-11-11 14:29] LABS: Erythropoietin (EPO). 11.6 mIU/mL (2.6-18.5)
[2024-11-13 13:34] LABS: Clinical Indication POLYCYTHEMIA; JAK2 V617F Mutation NOT DETECTED (NOT DETECTED); Specimen Source BLOOD
== END 2024-11-06 11:22 | disposition home or self-care (01) ==
LOC: ANHLAB 11:22
PROVIDERS: PCP Family Medicine; Visit Provider Internal Medicine Hematology & Oncology
DX: D75.1 Secondary polycythemia (principal)
CPT/HCPCS: 36415; 80053; 81270; 82668; 85025